=== PATIENT | female | born 1970 | race Caucasian/White ===

== ENCOUNTER 2016-10-19 10:00 | Outpatient (CLI) | payer OTHER, MEDICAID ==
[2015-04-02 17:06] VITALS: Ht 162.6 cm; Wt 141.1 kg
[~2016-10-19] VITALS: Ht 162.6 cm; Wt 141.1 kg
[~2016-10-19 10:00] MED LIST: AMLO2.5T2 PO; BENA40TA2 PO; DOCU-144 PO; FOLI-43 PO; FURO-149 PO; INSU100V9 SUBCUT; LEVO50TA8 PO; LINA290C PO; LYR50 PO; METO2.5T6 PO; OMEP40CA33 PO; PRO40 PO; REGL10 PO; SEVE800T10 PO; SIMV10TA2 PO; SIMV40TA2 PO; SODI650T PO
[2016-10-19 10:45] LABS: BILIRUBIN,URINE NEGATIVE (NEGATIVE); BLOOD, URINE 2+ (NEGATIVE); COLOR,URINE YELLOW (YELLOW); GLUCOSE,URINE NEGATIVE (NEGATIVE); KETONES,URINE NEGATIVE (NEGATIVE); LEUKOCYTE ESTERASE ,URINE TRACE (NEGATIVE); NITRITE, URINE NEGATIVE (NEGATIVE); PROTEIN URINE 3+ (NEGATIVE); UROBILINOGEN,URINE 0.2 (0.2-1.0)
[2016-10-19 10:47] LABS: BASOPHILS % (AUTO) 0.4 % (0.0-2.0); EOSINOPHILS # (AUTO) 0.2 K/uL (0.0-0.4); EOSINOPHILS % (AUTO) 2.7 % (0.0-4.0); LYMPHOCYTES # (AUTO) 2.2 K/uL (1.0-5.5); LYMPHOCYTES % (AUTO) 26.1 % (20.5-51.5); MEAN CORPUSCULAR HEMOGLOBIN 30 pg (27-31); MEAN CORPUSCULAR HGB CONC 33 % (32-36); MEAN CORPUSCULAR VOLUME 91 fL (79.0-98.0); MONOCYTES # (AUTO) 0.5 K/uL (0.0-1.0); MONOCYTES % (AUTO) 6.1 % (1.7-9.3); NEUTROPHILS # (AUTO) 5.7 K/uL (1.8-7.7); NEUTROPHILS % (AUTO) 64.7 % (40.0-70.0); PLATELET COUNT (AUTO) 359 K/uL (130-430); RED BLOOD CELL COUNT(AUTO) 4.07 MIL/uL (4.2-6.2); RED CELL DISTRIBUTION WIDTH 16.5 % (9.0-15.0); WHITE BLOOD COUNT (AUTO) 8.6 K/uL (4.8-10.8)
[2016-10-19 10:56] LABS: BACTERIA,URINE FEW /HPF (None Seen); CLARITY/URINE CLEAR (CLEAR); WBC,URINE 0-3 /HPF (0-3)
[2016-10-19 10:57] LABS: INR 0.9 (0.8-1.2); PROTHROMBIN TIME 9.6 SECS (9.5-12.5)
[2016-10-19 10:58] LABS: ALBUMIN 3.5 g/dL (3.4-4.8); CALCIUM 9.6 mg/dL (8.4-11.0); TOTAL BILIRUBIN 0.6 mg/dL (0.0-1.0); TOTAL PROTEIN, SERUM 8.6 g/dL (6.4-8.3)
[2016-10-19 11:04] LABS: POTASSIUM 5.9 mmol/L (3.5-5.1)
[2016-10-19 11:07] LABS: CREATININE 9.09 mg/dL (0.55-1.30)
[2016-10-20 05:59] VITALS: BP 132/70; PULSE 86; RESP 16; TEMP 97.4; O2SAT 98
== END 2016-10-19 18:00 | disposition home or self-care (01) ==
LOC: SLB 10:00 → SMU 10-20 05:08 → SDS 10-20 08:00 → SMU 10-20 08:00 → EDSTATUS 10-22 07:30
PROVIDERS: ATTEND Obstetrics & Gynecology
DX: N93.9 Abnormal uterine and vaginal bleeding, unspecified (principal); Z53.9 Procedure and treatment not carried out, unspecified reason; E03.9 Hypothyroidism, unspecified; I12.9 Hypertensive chronic kidney disease with stage 1 through stage 4 chronic kidney disease, or unspecified chronic kidney disease; E11.22 Type 2 diabetes mellitus with diabetic chronic kidney disease; N18.9 Chronic kidney disease, unspecified; E78.00 Pure hypercholesterolemia, unspecified; E66.01 Morbid (severe) obesity due to excess calories; Z79.4 Long term (current) use of insulin
CPT/HCPCS: 36415; 71020-TC; 80053; 81000-TC; 82962; 84132-TC; 84703; 85025; 85610-TC; 85730-TC; 86886; 86900; 86901; J7030

== ENCOUNTER 2017-02-09 14:44 | Emergency (ER) | payer OTHER, MEDICAID ==
[~2017-02-09] VITALS: Ht 162.6 cm; Wt 141.1 kg
[~2017-02-09 14:44] MED LIST changes: -BENA40TA2 PO; -FURO-149 PO; -LINA290C PO; -LYR50 PO; -METO2.5T6 PO; -OMEP40CA33 PO; -SIMV40TA2 PO; -SODI650T PO
[2017-02-09 14:56] VITALS: BP_SYST 127
[2017-02-09] MEDS ORDERED: DIPHENHYDRAMINE INJ 50 MG/ML VIAL IM ONE (16:15)
[2017-02-09] MEDS ORDERED: MORPHINE SULFATE 10 MG/ML VIAL IM ONE (16:15)
[2017-02-09] MEDS ORDERED: ACETAMINOPHEN/CODEINE 300 MG-30 MG TABLET PO ONE (16:30)
[2017-02-09 17:40] VITALS: BP_SYST 118
== END 2017-02-10 00:50 | disposition home or self-care (01) ==
LOC: SED 14:44
DX: S93.602A Unspecified sprain of left foot, initial encounter (principal); E11.610 Type 2 diabetes mellitus with diabetic neuropathic arthropathy; E11.22 Type 2 diabetes mellitus with diabetic chronic kidney disease; I12.0 Hypertensive chronic kidney disease with stage 5 chronic kidney disease or end stage renal disease; N18.6 End stage renal disease; Z99.2 Dependence on renal dialysis; Z79.4 Long term (current) use of insulin; Z89.422 Acquired absence of other left toe(s); W19.XXXA Unspecified fall, initial encounter; Y93.89 Activity, other specified; Y92.89 Other specified places as the place of occurrence of the external cause; Y99.8 Other external cause status
CPT/HCPCS: 73630; 99283; J1200; J2270

== ENCOUNTER 2017-08-08 12:30 | Outpatient (CLI) | payer OTHER, MEDICAID | END 2017-08-08 20:00 | disposition home or self-care (01) | LOC: SRD 12:30 | PROVIDERS: ATTEND Family Medicine | DX: Z01.818 Encounter for other preprocedural examination (principal); R05 Cough; N92.0 Excessive and frequent menstruation with regular cycle | CPT/HCPCS: 71046-TC ==

== ENCOUNTER 2017-08-24 07:30 | Day surgery (SDC) | payer OTHER, MEDICAID ==
[2017-08-23 11:35] LABS: BASOPHILS % (AUTO) 0.6 % (0.0-2.0); EOSINOPHILS # (AUTO) 0.3 K/uL (0.0-0.4); EOSINOPHILS % (AUTO) 4.1 % (0.0-4.0); HEMATOCRIT 39.8 % (36-48); HEMOGLOBIN 12.7 g/dL (12.0-16.0); LYMPHOCYTES # (AUTO) 2.4 K/uL (1.0-5.5); LYMPHOCYTES % (AUTO) 30.9 % (20.5-51.5); MEAN CORPUSCULAR HEMOGLOBIN 26 pg (27-31); MEAN CORPUSCULAR HGB CONC 32 % (32-36); MEAN CORPUSCULAR VOLUME 82 fL (79.0-98.0); MONOCYTES # (AUTO) 0.5 K/uL (0.0-1.0); MONOCYTES % (AUTO) 6.6 % (1.7-9.3); NEUTROPHILS # (AUTO) 4.7 K/uL (1.8-7.7); NEUTROPHILS % (AUTO) 57.8 % (40.0-70.0); PLATELET COUNT (AUTO) 338 K/uL (130-430); RED BLOOD CELL COUNT(AUTO) 4.85 MIL/uL (4.2-6.2); RED CELL DISTRIBUTION WIDTH 16.2 % (9.0-15.0); WHITE BLOOD COUNT (AUTO) 7.9 K/uL (4.8-10.8)
[2017-08-23 11:51] LABS: ALBUMIN 3.3 g/dL (3.4-4.8); CALCIUM 10.1 mg/dL (8.4-11.0); POTASSIUM 3.9 mmol/L (3.5-5.1); TOTAL BILIRUBIN 0.6 mg/dL (0.0-1.0)
[2017-08-23 12:03] LABS: CREATININE 7.53 mg/dL (0.55-1.30)
[~2017-08-24] VITALS: Ht 162.6 cm; Wt 117.9 kg
[2017-08-24 08:24] LABS: POTASSIUM 3.3 mmol/L (3.5-5.1)
[2017-08-24 08:30] LABS: INR 0.9 (0.8-1.2); PROTHROMBIN TIME 9.3 SECS (9.5-12.5)
[2017-08-24] MEDS ORDERED: MIDAZOLAM HCL 5 MG/5 ML VIAL IVP ONE (11:00)
[2017-08-24] MEDS ORDERED: BUPIVACAINE /PF 0.5% 30 ML VIAL INJ ONE (11:00)
[2017-08-24] MEDS ORDERED: SODIUM BICARBONATE 4% (NEUT) 5 ML VIAL INJ ONE (11:00)
[2017-08-24] MEDS ORDERED: NS 1000 ML BAG IV ONE (11:00)
[2017-08-24] MEDS ORDERED: LIDOCAINE/EPI 2% 1:100000 20 ML VIAL INJ ONE (11:00)
[2017-08-24] MEDS ORDERED: NS IRRIG SOLN 1000 ML IR ONE (11:00)
[2017-08-24] MEDS ORDERED: BUPIVACAINE /PF 0.75% 10 ML VIAL INJ ONE (11:00)
[2017-08-24] MEDS ORDERED: LR 1,000 ML IV SCH (12:07)
[2017-08-24] MEDS ORDERED: MORPHINE 4 MG/ML INJ. SYRINGE IVP PRN ×3 (12:15)
[2017-08-24] MEDS ORDERED: MEPERIDINE HCL/PF 25 MG/ML DISP.SYRIN IVP PRN (12:15)
[2017-08-24] MEDS ORDERED: PROMETHAZINE HCL 25 MG/ML AMP IM PRN (12:30)
[2017-08-24] MEDS ORDERED: ONDANSETRON HCL 4 MG/2 ML VIAL IVP PRN (12:30)
[2017-08-24] MEDS ORDERED: OXYCODONE/ACETAMINOPHEN 5-325 TABLET PO PRN (12:30)
[2017-08-24] MEDS ORDERED: ACETAMINOPHEN 325 MG TABLET ONE (13:34)
[2017-08-24] MEDS ORDERED: ACETAMINOPHEN 325 MG TABLET PO ONE (13:45)
[2017-08-24 16:55] VITALS: BP_SYST 149
== END 2017-08-24 16:45 | disposition home or self-care (01) ==
LOC: SDS 07:30 → SMU 07:30 → SDS 16:45
PROVIDERS: ATTEND Obstetrics & Gynecology
DX: N84.0 Polyp of corpus uteri (principal); D25.0 Submucous leiomyoma of uterus; I12.9 Hypertensive chronic kidney disease with stage 1 through stage 4 chronic kidney disease, or unspecified chronic kidney disease; E11.22 Type 2 diabetes mellitus with diabetic chronic kidney disease; N18.9 Chronic kidney disease, unspecified; E03.9 Hypothyroidism, unspecified; E78.00 Pure hypercholesterolemia, unspecified; E66.01 Morbid (severe) obesity due to excess calories; Z79.899 Other long term (current) drug therapy; Z88.0 Allergy status to penicillin
CPT/HCPCS: 36415 ×2; 58563; 80053; 82947; 84132; 84703; 85025; 85610; 85730; 86886; 86900; 86901; 88305; C1819; J2250; J3490 ×2; J7030

== ENCOUNTER 2018-04-28 10:35 | Inpatient (IN) | payer OTHER, MEDICAID ==
[~2018-04-28] VITALS: Ht 162.6 cm; Wt 90.7 kg
[~2018-04-28 10:35] MED LIST changes: +REN800 PO; -SEVE800T10 PO
[2018-04-28 11:07] VITALS: BP_SYST 128
[2018-04-28 12:53] LABS: BASOPHILS % (AUTO) 0.8 % (0.0-2.0); LYMPHOCYTES % (AUTO) 36.5 % (20.5-51.5)
[2018-04-28 12:55] LABS: BASOPHILS # (AUTO) 0.1 K/uL (0.0-0.2); EOSINOPHILS # (AUTO) 0.2 K/uL (0.0-0.4); EOSINOPHILS % (AUTO) 3.3 % (0.0-4.0); HEMOGLOBIN 10.8 g/dL (12.0-16.0); LYMPHOCYTES # (AUTO) 2.7 K/uL (1.0-5.5); MEAN CORPUSCULAR HEMOGLOBIN 29 pg (27-31); MEAN CORPUSCULAR HGB CONC 33 % (32-36); MEAN CORPUSCULAR VOLUME 88 fL (79.0-98.0); MONOCYTES # (AUTO) 0.5 K/uL (0.0-1.0); MONOCYTES % (AUTO) 6.6 % (1.7-9.3); NEUTROPHILS # (AUTO) 3.9 K/uL (1.8-7.7); NEUTROPHILS % (AUTO) 52.8 % (40.0-70.0); PLATELET COUNT (AUTO) 307 K/uL (130-430); RED BLOOD CELL COUNT(AUTO) 3.74 MIL/uL (4.2-6.2); RED CELL DISTRIBUTION WIDTH 13.8 % (9.0-15.0); WHITE BLOOD COUNT (AUTO) 7.4 K/uL (4.8-10.8)
[2018-04-28 12:59] LABS: CALCIUM 9.7 mg/dL (8.4-11.0); POTASSIUM 4.4 mmol/L (3.5-5.1)
[2018-04-28 13:03] LABS: INR 0.9 (0.8-1.2); PROTHROMBIN TIME 9.3 SECS (9.5-12.5)
[2018-04-28 13:05] LABS: ALBUMIN 3.5 g/dL (3.4-4.8); TOTAL BILIRUBIN 0.6 mg/dL (0.0-1.0)
[2018-04-28 13:08] LABS: CREATININE 14.22 mg/dL (0.55-1.30)
[2018-04-28] MEDS ORDERED: SUCR1TAB78 PO (15:49)
[2018-04-28] MEDS ORDERED: SEVE800T8 PO (15:49)
[2018-04-28] MEDS ORDERED: ACET-2634 PO (15:49)
[2018-04-28] MEDS ORDERED: NEPH PO (15:49)
[2018-04-28] MEDS ORDERED: LORA10TA7 PO (15:49)
[2018-04-28] MEDS ORDERED: LINA72CA PO (15:49)
[2018-04-28 16:20] VITALS: BP_SYST 118
[2018-04-28 19:15] VITALS: BP_SYST 134
[2018-04-28] MEDS: SEVELAMER HCL 800 MG TABLET PO SCH (21:48)
[2018-04-28] MEDS: ACETAMINOPHEN 500 MG TABLET PO SCH (22:00)
[2018-04-29] MEDS: ACETAMINOPHEN 500 MG TABLET PO SCH (05:56)
[2018-04-29 08:00] VITALS: BP_SYST 101
[2018-04-29] MEDS: SEVELAMER HCL 800 MG TABLET PO SCH ×2 (08:55→13:15)
[2018-04-29] MEDS ORDERED: LORATADINE 10 MG TABLET PO SCH (09:00)
[2018-04-29] MEDS ORDERED: NEPHROVITE, (FOLIC ACID/VITAMIN B COMP W-C 1 TAB) PO SCH ×2 (09:00)
[2018-04-29] MEDS ORDERED: SUCRALFATE 1 GM TABLET PO SCH (09:00)
[2018-04-29 11:55] VITALS: BP_SYST 117
[2018-04-29 15:57] VITALS: BP_SYST 134
[2018-04-29 16:17] VITALS: BP_SYST 120
== END 2018-04-29 16:37 | disposition home or self-care (01) | DRG 91 ==
LOC: SED 10:35 → SMU 15:19
PROVIDERS: ADMIT Family Medicine; ATTEND Family Medicine
PROC: 5A1D70Z Performance of Urinary Filtration, Intermittent, Less than 6 Hours Per Day (ICD-10-PCS; principal; 2018-04-28)
DX: G92 Toxic encephalopathy (principal); N18.6 End stage renal disease; I12.0 Hypertensive chronic kidney disease with stage 5 chronic kidney disease or end stage renal disease; E66.9 Obesity, unspecified; D64.9 Anemia, unspecified; E11.22 Type 2 diabetes mellitus with diabetic chronic kidney disease; E11.51 Type 2 diabetes mellitus with diabetic peripheral angiopathy without gangrene; E11.610 Type 2 diabetes mellitus with diabetic neuropathic arthropathy; G47.30 Sleep apnea, unspecified; J45.909 Unspecified asthma, uncomplicated; Z99.2 Dependence on renal dialysis; Z88.1 Allergy status to other antibiotic agents; Z88.8 Allergy status to other drugs, medicaments and biological substances; Z79.899 Other long term (current) drug therapy; Z68.34 Body mass index [BMI] 34.0-34.9, adult; Z89.421 Acquired absence of other right toe(s)
CPT/HCPCS: 36415; 71045; 80053; 83880; 84484; 84703; 85025; 85610-TC; 85730-TC; 87081; 90935; 93005; 99285; J7030

== ENCOUNTER 2018-11-26 01:36 | Emergency (ER) | payer OTHER, MEDICAID ==
[~2018-11-26] VITALS: Ht 162.6 cm; Wt 81.6 kg
[~2018-11-26 01:36] MED LIST changes: +ACET-2634 PO; -AMLO2.5T2 PO; -DOCU-144 PO; -FOLI-43 PO; -INSU100V9 SUBCUT; -LEVO50TA8 PO; +LINA72CA PO; +LORA10TA7 PO; +NEPH PO; -PRO40 PO; -REGL10 PO; -REN800 PO; +SEVE800T8 PO; -SIMV10TA2 PO; +SUCR1TAB78 PO
[2018-11-26 01:43] VITALS: BP_SYST 151
--- NOTE | 2018-11-26 01:43 | NUR ---
Patient to ER bed 4 for evaluation. Side rails up. Report given to Jimena.
--- NOTE | 2018-11-26 02:00 | NUR ---
ER at bedside examining patient.
--- NOTE | 2018-11-26 02:05 | NUR ---
PT came to the ED for severe pain at side of lizzy quesada drawin on her L lateral ABD placed on 11/16 when she had a tummy tuck. Reports that when she sat down last night she had a sharp, severe pain around her tubing palaced on her L lateral ABD. Reports her plastic surgeon Dr. Harris referred her to ED. Denies n/v/d or fever. No other complaints/injuries noted. Will cont. to monitor.
[2018-11-26] MEDS ORDERED: ACETAMINOPHEN 500 MG TABLET PO ONE (02:30)
--- NOTE | 2018-11-26 03:00 | NUR ---
Pt resting comfortably in bed, no signs of acute distress. Will cont. to monitor.
[2018-11-26 03:47] LABS: BASOPHILS # (AUTO) 0.1 K/uL (0.0-0.2); BASOPHILS % (AUTO) 1.9 % (0.0-2.0); EOSINOPHILS # (AUTO) 0.9 K/uL (0.0-0.4); EOSINOPHILS % (AUTO) 13.7 % (0.0-4.0); HEMATOCRIT 26.3 % (36-48); HEMOGLOBIN 8.3 g/dL (12.0-16.0); LYMPHOCYTES # (AUTO) 1.5 K/uL (1.0-5.5); LYMPHOCYTES % (AUTO) 21.8 % (20.5-51.5); MEAN CORPUSCULAR HEMOGLOBIN 26 pg (27-31); MEAN CORPUSCULAR HGB CONC 32 % (32-36); MEAN CORPUSCULAR VOLUME 81 fL (79.0-98.0); MONOCYTES # (AUTO) 0.6 K/uL (0.0-1.0); MONOCYTES % (AUTO) 9.2 % (1.7-9.3); NEUTROPHILS # (AUTO) 3.6 K/uL (1.8-7.7); NEUTROPHILS % (AUTO) 53.4 % (40.0-70.0); PLATELET COUNT (AUTO) 335 K/uL (130-430); RED BLOOD CELL COUNT(AUTO) 3.25 MIL/uL (4.2-6.2); RED CELL DISTRIBUTION WIDTH 15.6 % (9.0-15.0); WHITE BLOOD COUNT (AUTO) 6.7 K/uL (4.8-10.8)
--- NOTE | 2018-11-26 04:00 | NUR ---
Pt resting comfortably in bed, no signs of acute distress. Will cont. to monitor.
[2018-11-26 04:03] LABS: CALCIUM 9.4 mg/dL (8.4-11.0); CREATININE 7.07 mg/dL (0.55-1.30); POTASSIUM 4.1 mmol/L (3.5-5.1)
[2018-11-26 04:09] LABS: ALBUMIN 2.8 g/dL (3.4-4.8); TOTAL BILIRUBIN 0.4 mg/dL (0.0-1.0)
--- NOTE | 2018-11-26 05:00 | NUR ---
Pt resting comfortably in bed, no signs of acute distress. Will cont. to monitor.
--- NOTE | 2018-11-26 06:11 | NUR ---
Dr. Wallace at bedside speaking to pt.
--- NOTE | 2018-11-26 06:14 | NUR ---
Dr. Wallace gave the pt the decision if she would like to stay or go home. Pt states, "I would like to go home."
[2018-11-26 06:30] VITALS: BP_SYST 151
--- NOTE | 2018-11-26 06:30 | NUR ---
Patient given written and verbal discharge instructions and verbalizes understanding. ER MD Dr. Wallace discussed with patient the results and treatment provided. Patient in stable condition. ID arm band removed. Patient educated on pain management and to follow up with PMD. Pain Scale 2/10, tolerable for pt. Pt able to ambulate with steady gait. Opportunity for questions provided and answered. Medication side effect fact sheet provided.
== END 2018-11-26 06:30 | disposition home or self-care (01) ==
LOC: SED 01:36
DX: G89.18 Other acute postprocedural pain (principal); R10.9 Unspecified abdominal pain; I12.9 Hypertensive chronic kidney disease with stage 1 through stage 4 chronic kidney disease, or unspecified chronic kidney disease; E11.22 Type 2 diabetes mellitus with diabetic chronic kidney disease; N18.9 Chronic kidney disease, unspecified; Z99.2 Dependence on renal dialysis; Z88.1 Allergy status to other antibiotic agents; Z79.899 Other long term (current) drug therapy
CPT/HCPCS: 36415; 80053; 85025; 99283

== ENCOUNTER 2019-10-26 15:01 | Inpatient (IN) | payer OTHER, MEDICAID, SELFPAY ==
[~2019-10-26] VITALS: Ht 162.6 cm; Wt 75.7 kg
[2019-10-26] MEDS ORDERED: ROSU10TA29 PO (15:23)
[2019-10-26] MEDS ORDERED: PANT40TA4 PO (15:23)
[2019-10-26] MEDS ORDERED: LEVO50CA2 PO (15:23)
[2019-10-26] MEDS ORDERED: HYDR-4037 PO (15:23)
[2019-10-26] MEDS ORDERED: CHOL100034 PO (15:23)
[2019-10-26] MEDS ORDERED: AMLO10TA88 PO (15:23)
[2019-10-26] MEDS ORDERED: [UNRECOGNIZED DRUG - OTHER] PO (15:23)
[2019-10-26] MEDS ORDERED: LYR50 PO (15:23)
[2019-10-26] MEDS ORDERED: SENN8.6T19 PO (15:23)
[2019-10-26 15:25] VITALS: BP_SYST 155
[2019-10-26] MEDS ORDERED: HYDR-4100 PO (15:25)
[2019-10-26] MEDS ORDERED: IBUP-1017 PO (15:25)
[2019-10-26 16:56] LABS: BASOPHILS % (AUTO) 0.7 % (0.0-2.0); HEMATOCRIT 28.4 % (36-48); HEMOGLOBIN 9.6 g/dL (12.0-16.0); LYMPHOCYTES % (AUTO) 25.7 % (20.5-51.5); MEAN CORPUSCULAR HEMOGLOBIN 30 pg (27-31); MEAN CORPUSCULAR HGB CONC 34 % (32-36); MEAN CORPUSCULAR VOLUME 90 fL (79.0-98.0); MONOCYTES # (AUTO) 0.3 K/uL (0.0-1.0); MONOCYTES % (AUTO) 7.6 % (1.7-9.3); NEUTROPHILS # (AUTO) 2.6 K/uL (1.8-7.7); PLATELET COUNT (AUTO) 151 K/uL (130-430); RED BLOOD CELL COUNT(AUTO) 3.15 MIL/uL (4.2-6.2); RED CELL DISTRIBUTION WIDTH 14.9 % (9.0-15.0); WHITE BLOOD COUNT (AUTO) 3.9 K/uL (4.8-10.8)
[2019-10-26 16:58] LABS: CALCIUM 8.6 mg/dL (8.4-11.0); POTASSIUM 4.5 mmol/L (3.5-5.1)
[2019-10-26 17:01] LABS: PROTHROMBIN TIME 10.1 SECS (9.5-12.5)
[2019-10-26 17:03] LABS: ALBUMIN 3.4 g/dL (3.4-4.8); C-REACTIVE PROTEIN QUANT 11.3 mg/dL (0-0.5); CREATININE 9.76 mg/dL (0.55-1.30); TOTAL BILIRUBIN 0.5 mg/dL (0.0-1.0)
[2019-10-26] MEDS ORDERED: cefTRIAXone 1 GM in D5W 50 ML IV ONE (17:15)
[2019-10-26] MEDS ORDERED: AZITHROMYCIN 500 MG in NS 250 ML IV ONE (17:15)
[2019-10-26] MEDS ORDERED: AZITHROMYCIN 500 MG/VIAL (ZITHROMAX) IV ONE (17:49)
[2019-10-26] MEDS ORDERED: cefTRIAXone 1 GM VIAL ONE (17:50)
[2019-10-26] MEDS ORDERED: IBUPROFEN 800 MG TABLET PO ONE (18:00)
[2019-10-26 19:00] VITALS: BP_SYST 128
[2019-10-26 20:00] VITALS: BP_SYST 128
[2019-10-26] MEDS ORDERED: IBUPROFEN 800 MG TABLET PO SCH (23:00)
[2019-10-26] MEDS ORDERED: HYDROcodone/ACETAMIN 10-325 MG TAB PO PRN (23:15)
[2019-10-27] VITALS: BP_SYST 127
[2019-10-27] MEDS: guaiFENesin 200 MG/CODEINE 20 MG/ 10 ML UDC PO PRN (00:51)
[2019-10-27 06:00] VITALS: BP_SYST 150
[2019-10-27 06:38] LABS: BASOPHILS % (AUTO) 0.4 % (0.0-2.0); EOSINOPHILS % (AUTO) 0.1 % (0.0-4.0); HEMOGLOBIN 9.2 g/dL (12.0-16.0); LYMPHOCYTES # (AUTO) 0.5 K/uL (1.0-5.5); LYMPHOCYTES % (AUTO) 13.6 % (20.5-51.5); MEAN CORPUSCULAR HEMOGLOBIN 30 pg (27-31); MEAN CORPUSCULAR HGB CONC 34 % (32-36); MEAN CORPUSCULAR VOLUME 89 fL (79.0-98.0); MONOCYTES # (AUTO) 0.2 K/uL (0.0-1.0); MONOCYTES % (AUTO) 4.6 % (1.7-9.3); NEUTROPHILS # (AUTO) 2.9 K/uL (1.8-7.7); NEUTROPHILS % (AUTO) 81.3 % (40.0-70.0); PLATELET COUNT (AUTO) 126 K/uL (130-430); RED BLOOD CELL COUNT(AUTO) 3.02 MIL/uL (4.2-6.2); WHITE BLOOD COUNT (AUTO) 3.6 K/uL (4.8-10.8)
[2019-10-27 06:43] LABS: CALCIUM 8.4 mg/dL (8.4-11.0); POTASSIUM 5.2 mmol/L (3.5-5.1)
[2019-10-27] MEDS: ACETAMINOPHEN 500 MG TABLET PO SCH ×3 (06:45→23:20)
[2019-10-27 06:48] LABS: CREATININE 10.84 mg/dL (0.55-1.30)
[2019-10-27 08:00] VITALS: BP_SYST 131
[2019-10-27] MEDS: SUCRALFATE 1 GM TABLET PO SCH (08:53)
[2019-10-27] MEDS: PANTOPRAZOLE SODIUM 40 MG TAB PO SCH (08:53)
[2019-10-27] MEDS: SEVELAMER CARBONATE 800 MG TABLET PO SCH ×3 (08:53→17:16)
[2019-10-27] MEDS: CHOLECALCIFEROL (VITAMIN D3) 2,000 UNIT TABLET PO SCH (08:53)
[2019-10-27] MEDS: LORATADINE 10 MG TABLET PO SCH (08:53)
[2019-10-27] MEDS: NEPHROVITE, (FOLIC ACID/VITAMIN B COMP W-C 1 TAB) PO SCH (08:53)
[2019-10-27] MEDS: ATORVASTATIN 20 MG TABLET PO SCH (08:53)
[2019-10-27] MEDS: LEVOTHYROXINE SODIUM 0.05 MG TABLET PO SCH (08:54)
[2019-10-27] MEDS: SENNOSIDES 8.6 MG TABLET PO SCH (08:54)
[2019-10-27] MEDS: PREGABALIN 25 MG CAPSULE (LYRICA) PO SCH (08:54)
[2019-10-27] MEDS ORDERED: [UNRECOGNIZED DRUG - OTHER] PO SCH (09:00)
[2019-10-27] MEDS: hydrALAZINE HCL 10 MG TABLET PO SCH ×2 (09:00→21:00)
[2019-10-27] MEDS: amLODIPine BESYLATE 10 MG TABLET PO SCH (09:00)
[2019-10-27 12:00] VITALS: BP_SYST 127
[2019-10-27 16:00] VITALS: BP_SYST 122
[2019-10-27] MEDS ORDERED: ASCORBIC ACID 500 MG TABLET PO ONE (16:30)
[2019-10-27] MEDS ORDERED: HEPARIN SODIUM,PORCINE 5000 UNITS/ML VIAL MC ONE (17:30)
[2019-10-27] MEDS: EPOETIN ALFA 3,000 UNITS/ML VIAL SUBCUT SCH (18:45)
[2019-10-27] MEDS: cefTRIAXone 1 GM in D5W 50 ML IV SCH (19:06)
[2019-10-27] MEDS: AZITHROMYCIN 500 MG in NS 250 ML IV SCH (19:07)
[2019-10-27 20:00] VITALS: BP_SYST 119; BP_SYST 147
[2019-10-27] MEDS: ENOXAPARIN SODIUM 30 MG/0.3 ML SYRINGE SUBCUT SCH (22:18)
[2019-10-28] VITALS: BP_SYST 110
[2019-10-28] MEDS: ACETAMINOPHEN 500 MG TABLET PO SCH ×3 (06:00→22:40)
[2019-10-28 07:42] LABS: BASOPHILS % (AUTO) 0.4 % (0.0-2.0); EOSINOPHILS % (AUTO) 0.7 % (0.0-4.0); HEMATOCRIT 26.8 % (36-48); LYMPHOCYTES # (AUTO) 0.9 K/uL (1.0-5.5); LYMPHOCYTES % (AUTO) 18.6 % (20.5-51.5); MEAN CORPUSCULAR HEMOGLOBIN 30 pg (27-31); MEAN CORPUSCULAR HGB CONC 34 % (32-36); MEAN CORPUSCULAR VOLUME 90 fL (79.0-98.0); MONOCYTES # (AUTO) 0.1 K/uL (0.0-1.0); MONOCYTES % (AUTO) 2.6 % (1.7-9.3); NEUTROPHILS # (AUTO) 3.6 K/uL (1.8-7.7); NEUTROPHILS % (AUTO) 77.7 % (40.0-70.0); PLATELET COUNT (AUTO) 147 K/uL (130-430); RED BLOOD CELL COUNT(AUTO) 2.98 MIL/uL (4.2-6.2); WHITE BLOOD COUNT (AUTO) 4.6 K/uL (4.8-10.8)
[2019-10-28 08:00] VITALS: BP_SYST 118
[2019-10-28 08:03] LABS: CALCIUM 8.6 mg/dL (8.4-11.0)
[2019-10-28] MEDS: SEVELAMER CARBONATE 800 MG TABLET PO SCH ×3 (08:12→18:16)
[2019-10-28 08:24] LABS: CREATININE 8.09 mg/dL (0.55-1.30)
[2019-10-28 08:40] LABS: C-REACTIVE PROTEIN QUANT 29.7 mg/dL (0-0.5)
[2019-10-28] MEDS: PREGABALIN 25 MG CAPSULE (LYRICA) PO SCH (09:00)
[2019-10-28] MEDS: SUCRALFATE 1 GM TABLET PO SCH (09:44)
[2019-10-28] MEDS: LORATADINE 10 MG TABLET PO SCH (09:44)
[2019-10-28] MEDS: ATORVASTATIN 20 MG TABLET PO SCH (09:44)
[2019-10-28] MEDS: hydrALAZINE HCL 10 MG TABLET PO SCH ×2 (09:44→22:40)
[2019-10-28] MEDS: NEPHROVITE, (FOLIC ACID/VITAMIN B COMP W-C 1 TAB) PO SCH (09:45)
[2019-10-28] MEDS: ASCORBIC ACID 500 MG TABLET PO SCH (09:45)
[2019-10-28] MEDS: amLODIPine BESYLATE 10 MG TABLET PO SCH (09:45)
[2019-10-28] MEDS: PANTOPRAZOLE SODIUM 40 MG TAB PO SCH (09:45)
[2019-10-28] MEDS: SENNOSIDES 8.6 MG TABLET PO SCH (09:45)
[2019-10-28] MEDS: LEVOTHYROXINE SODIUM 0.05 MG TABLET PO SCH (09:45)
[2019-10-28] MEDS: CHOLECALCIFEROL (VITAMIN D3) 2,000 UNIT TABLET PO SCH (09:45)
[2019-10-28 12:00] VITALS: BP_SYST 126
[2019-10-28 16:00] VITALS: BP_SYST 134
[2019-10-28] MEDS: AZITHROMYCIN 500 MG in NS 250 ML IV SCH (18:15)
[2019-10-28] MEDS: cefTRIAXone 1 GM in D5W 50 ML IV SCH (18:15)
[2019-10-28] MEDS: EPOETIN ALFA 3,000 UNITS/ML VIAL SUBCUT SCH (18:16)
[2019-10-28] MEDS: guaiFENesin 200 MG/CODEINE 20 MG/ 10 ML UDC PO PRN ×2 (18:30→20:00)
[2019-10-28 20:45] VITALS: BP_SYST 114
[2019-10-28] MEDS: ENOXAPARIN SODIUM 30 MG/0.3 ML SYRINGE SUBCUT SCH (22:40)
[2019-10-29 00:30] VITALS: BP_SYST 127
[2019-10-29] MEDS: ACETAMINOPHEN 500 MG TABLET PO SCH ×3 (05:55→21:19)
[2019-10-29 08:15] VITALS: BP_SYST 136
[2019-10-29 08:33] LABS: BASOPHILS % (AUTO) 0.3 % (0.0-2.0); HEMATOCRIT 24.9 % (36-48); HEMOGLOBIN 8.4 g/dL (12.0-16.0); LYMPHOCYTES # (AUTO) 0.7 K/uL (1.0-5.5); LYMPHOCYTES % (AUTO) 18.8 % (20.5-51.5); MEAN CORPUSCULAR HEMOGLOBIN 30 pg (27-31); MEAN CORPUSCULAR HGB CONC 34 % (32-36); MEAN CORPUSCULAR VOLUME 89 fL (79.0-98.0); MONOCYTES # (AUTO) 0.1 K/uL (0.0-1.0); MONOCYTES % (AUTO) 3.4 % (1.7-9.3); NEUTROPHILS # (AUTO) 2.9 K/uL (1.8-7.7); NEUTROPHILS % (AUTO) 76.5 % (40.0-70.0); PLATELET COUNT (AUTO) 143 K/uL (130-430); RED CELL DISTRIBUTION WIDTH 15.2 % (9.0-15.0); WHITE BLOOD COUNT (AUTO) 3.8 K/uL (4.8-10.8)
[2019-10-29 08:45] LABS: CALCIUM 8.4 mg/dL (8.4-11.0); PHOSPHORUS 5.1 mg/dL (2.7-4.5); POTASSIUM 4.3 mmol/L (3.5-5.1)
[2019-10-29 08:49] LABS: CREATININE 10.1 mg/dL (0.55-1.30)
[2019-10-29] MEDS: ATORVASTATIN 20 MG TABLET PO SCH (09:00)
[2019-10-29] MEDS: SUCRALFATE 1 GM TABLET PO SCH (09:20)
[2019-10-29] MEDS: hydrALAZINE HCL 10 MG TABLET PO SCH ×2 (09:20→21:17)
[2019-10-29] MEDS: SEVELAMER CARBONATE 800 MG TABLET PO SCH ×3 (09:20→18:23)
[2019-10-29] MEDS: CHOLECALCIFEROL (VITAMIN D3) 2,000 UNIT TABLET PO SCH (09:21)
[2019-10-29] MEDS: NEPHROVITE, (FOLIC ACID/VITAMIN B COMP W-C 1 TAB) PO SCH (09:21)
[2019-10-29] MEDS: SENNOSIDES 8.6 MG TABLET PO SCH (09:21)
[2019-10-29] MEDS: LORATADINE 10 MG TABLET PO SCH (09:21)
[2019-10-29] MEDS: ASCORBIC ACID 500 MG TABLET PO SCH (09:21)
[2019-10-29] MEDS: PREGABALIN 25 MG CAPSULE (LYRICA) PO SCH (09:21)
[2019-10-29] MEDS: PANTOPRAZOLE SODIUM 40 MG TAB PO SCH (09:21)
[2019-10-29] MEDS: amLODIPine BESYLATE 10 MG TABLET PO SCH (09:21)
[2019-10-29] MEDS: LEVOTHYROXINE SODIUM 0.05 MG TABLET PO SCH (09:21)
[2019-10-29] MEDS ORDERED: PHO667 PO (09:34)
[2019-10-29] MEDS ORDERED: IVERMECTIN 3 MG TABLET PO ONE (11:45)
[2019-10-29] MEDS: guaiFENesin 200 MG/CODEINE 20 MG/ 10 ML UDC PO PRN (11:50)
[2019-10-29 13:16] VITALS: BP_SYST 156
[2019-10-29] MEDS ORDERED: HEPARIN SODIUM,PORCINE 5000 UNITS/ML VIAL MC ONE (14:45)
[2019-10-29] MEDS ORDERED: HEPARIN SODIUM,PORCINE 5000 UNITS/ML VIAL ONE (14:54)
[2019-10-29 16:00] VITALS: BP_SYST 157
[2019-10-29] MEDS: cefTRIAXone 1 GM in D5W 50 ML IV SCH (17:29)
[2019-10-29] MEDS: AZITHROMYCIN 500 MG in NS 250 ML IV SCH (18:23)
[2019-10-29 20:00] VITALS: BP_SYST 127
[2019-10-29] MEDS: ENOXAPARIN SODIUM 30 MG/0.3 ML SYRINGE SUBCUT SCH (21:18)
[2019-10-30] VITALS: BP_SYST 108
[2019-10-30] MEDS: ACETAMINOPHEN 500 MG TABLET PO SCH ×3 (05:58→22:30)
[2019-10-30 07:12] LABS: BASOPHILS % (AUTO) 0.3 % (0.0-2.0); EOSINOPHILS % (AUTO) 0.5 % (0.0-4.0); HEMOGLOBIN 8.1 g/dL (12.0-16.0); LYMPHOCYTES # (AUTO) 0.6 K/uL (1.0-5.5); LYMPHOCYTES % (AUTO) 13.8 % (20.5-51.5); MEAN CORPUSCULAR HEMOGLOBIN 30 pg (27-31); MEAN CORPUSCULAR HGB CONC 34 % (32-36); MEAN CORPUSCULAR VOLUME 89 fL (79.0-98.0); MONOCYTES # (AUTO) 0.2 K/uL (0.0-1.0); MONOCYTES % (AUTO) 3.9 % (1.7-9.3); NEUTROPHILS # (AUTO) 3.3 K/uL (1.8-7.7); NEUTROPHILS % (AUTO) 81.5 % (40.0-70.0); PLATELET COUNT (AUTO) 178 K/uL (130-430); RED CELL DISTRIBUTION WIDTH 14.6 % (9.0-15.0); WHITE BLOOD COUNT (AUTO) 4.1 K/uL (4.8-10.8)
[2019-10-30 07:34] LABS: CALCIUM 8.2 mg/dL (8.4-11.0); POTASSIUM 3.6 mmol/L (3.5-5.1)
[2019-10-30 08:30] LABS: CREATININE 7.98 mg/dL (0.55-1.30)
[2019-10-30] MEDS: CHOLECALCIFEROL (VITAMIN D3) 2,000 UNIT TABLET PO SCH (08:51)
[2019-10-30] MEDS: SEVELAMER CARBONATE 800 MG TABLET PO SCH ×4 (08:52→18:12)
[2019-10-30] MEDS: LORATADINE 10 MG TABLET PO SCH (08:52)
[2019-10-30] MEDS: SUCRALFATE 1 GM TABLET PO SCH (08:52)
[2019-10-30] MEDS: NEPHROVITE, (FOLIC ACID/VITAMIN B COMP W-C 1 TAB) PO SCH (08:52)
[2019-10-30] MEDS: LEVOTHYROXINE SODIUM 0.05 MG TABLET PO SCH (08:53)
[2019-10-30] MEDS: SENNOSIDES 8.6 MG TABLET PO SCH (08:53)
[2019-10-30] MEDS: PANTOPRAZOLE SODIUM 40 MG TAB PO SCH (08:53)
[2019-10-30] MEDS: ATORVASTATIN 20 MG TABLET PO SCH (08:54)
[2019-10-30] MEDS: ASCORBIC ACID 500 MG TABLET PO SCH (08:54)
[2019-10-30] MEDS: PREGABALIN 25 MG CAPSULE (LYRICA) PO SCH (09:00)
[2019-10-30] MEDS: hydrALAZINE HCL 10 MG TABLET PO SCH ×2 (09:00→22:29)
[2019-10-30 09:05] LABS: C-REACTIVE PROTEIN QUANT 25.7 mg/dL (0-0.5)
[2019-10-30 09:10] VITALS: BP_SYST 143
[2019-10-30] MEDS: amLODIPine BESYLATE 10 MG TABLET PO SCH (09:35)
[2019-10-30 12:30] VITALS: BP_SYST 130
[2019-10-30 16:00] VITALS: BP_SYST 134
[2019-10-30] MEDS: AZITHROMYCIN 500 MG in NS 250 ML IV SCH (18:11)
[2019-10-30] MEDS: cefTRIAXone 1 GM in D5W 50 ML IV SCH (18:11)
[2019-10-30] MEDS: EPOETIN ALFA 3,000 UNITS/ML VIAL SUBCUT SCH (18:11)
[2019-10-30] MEDS ORDERED: MILK OF MAGNESIA 30 ML UDC PO PRN (19:45)
[2019-10-30 20:00] VITALS: BP_SYST 138
[2019-10-30] MEDS: LUBIPROSTONE 24 MCG CAPSULE PO SCH (22:29)
[2019-10-30] MEDS: ENOXAPARIN SODIUM 30 MG/0.3 ML SYRINGE SUBCUT SCH (22:29)
[2019-10-31] VITALS: BP_SYST 133
[2019-10-31] MEDS: guaiFENesin 200 MG/CODEINE 20 MG/ 10 ML UDC PO PRN (01:23)
[2019-10-31] MEDS: ACETAMINOPHEN 500 MG TABLET PO SCH ×3 (06:30→22:17)
[2019-10-31 08:00] VITALS: BP_SYST 130
[2019-10-31] MEDS: SEVELAMER CARBONATE 800 MG TABLET PO SCH ×3 (08:00→17:42)
[2019-10-31] MEDS: hydrALAZINE HCL 10 MG TABLET PO SCH ×2 (09:00→20:28)
[2019-10-31] MEDS: amLODIPine BESYLATE 10 MG TABLET PO SCH (09:00)
[2019-10-31] MEDS: LUBIPROSTONE 24 MCG CAPSULE PO SCH ×2 (10:06→20:28)
[2019-10-31] MEDS: NEPHROVITE, (FOLIC ACID/VITAMIN B COMP W-C 1 TAB) PO SCH (10:08)
[2019-10-31] MEDS: PREGABALIN 25 MG CAPSULE (LYRICA) PO SCH (10:08)
[2019-10-31] MEDS: LORATADINE 10 MG TABLET PO SCH (10:08)
[2019-10-31] MEDS: SUCRALFATE 1 GM TABLET PO SCH (10:08)
[2019-10-31] MEDS: ATORVASTATIN 20 MG TABLET PO SCH (10:08)
[2019-10-31] MEDS: PANTOPRAZOLE SODIUM 40 MG TAB PO SCH (10:09)
[2019-10-31] MEDS: ASCORBIC ACID 500 MG TABLET PO SCH (10:10)
[2019-10-31] MEDS: LEVOTHYROXINE SODIUM 0.05 MG TABLET PO SCH (10:10)
[2019-10-31] MEDS: SENNOSIDES 8.6 MG TABLET PO SCH (10:10)
[2019-10-31] MEDS: CHOLECALCIFEROL (VITAMIN D3) 2,000 UNIT TABLET PO SCH (10:11)
[2019-10-31 12:00] VITALS: BP_SYST 128
[2019-10-31] MEDS ORDERED: HEPARIN SODIUM,PORCINE 5000 UNITS/ML VIAL MC ONE (13:15)
[2019-10-31 16:00] VITALS: BP_SYST 132
[2019-10-31] MEDS: cefTRIAXone 1 GM in D5W 50 ML IV SCH (17:42)
[2019-10-31 19:30] VITALS: BP_SYST 113
[2019-10-31] MEDS: ENOXAPARIN SODIUM 30 MG/0.3 ML SYRINGE SUBCUT SCH (20:29)
[2019-11-01 00:02] VITALS: BP_SYST 118
[2019-11-01] MEDS: ACETAMINOPHEN 500 MG TABLET PO SCH ×3 (05:00→21:40)
[2019-11-01 07:54] LABS: C-REACTIVE PROTEIN QUANT 27.5 mg/dL (0-0.5)
[2019-11-01 08:00] VITALS: BP_SYST 151
[2019-11-01] MEDS: SENNOSIDES 8.6 MG TABLET PO SCH (09:00)
[2019-11-01] MEDS: SEVELAMER CARBONATE 800 MG TABLET PO SCH ×3 (09:01→17:28)
[2019-11-01] MEDS: hydrALAZINE HCL 10 MG TABLET PO SCH ×2 (09:01→21:40)
[2019-11-01] MEDS: LUBIPROSTONE 24 MCG CAPSULE PO SCH ×2 (09:01→21:40)
[2019-11-01] MEDS: LORATADINE 10 MG TABLET PO SCH (09:03)
[2019-11-01] MEDS: SUCRALFATE 1 GM TABLET PO SCH (09:03)
[2019-11-01] MEDS: ATORVASTATIN 20 MG TABLET PO SCH (09:04)
[2019-11-01] MEDS: PREGABALIN 25 MG CAPSULE (LYRICA) PO SCH (09:04)
[2019-11-01] MEDS: amLODIPine BESYLATE 10 MG TABLET PO SCH (09:04)
[2019-11-01] MEDS: NEPHROVITE, (FOLIC ACID/VITAMIN B COMP W-C 1 TAB) PO SCH (09:04)
[2019-11-01] MEDS: LEVOTHYROXINE SODIUM 0.05 MG TABLET PO SCH (09:05)
[2019-11-01] MEDS: PANTOPRAZOLE SODIUM 40 MG TAB PO SCH (09:05)
[2019-11-01] MEDS: ASCORBIC ACID 500 MG TABLET PO SCH (09:05)
[2019-11-01] MEDS: CHOLECALCIFEROL (VITAMIN D3) 2,000 UNIT TABLET PO SCH (09:05)
[2019-11-01 12:00] VITALS: BP_SYST 127
[2019-11-01] MEDS: EPOETIN ALFA 3,000 UNITS/ML VIAL SUBCUT SCH (17:27)
[2019-11-01] MEDS: cefTRIAXone 1 GM in D5W 50 ML IV SCH (17:28)
[2019-11-01 17:29] VITALS: BP_SYST 137
[2019-11-01 20:00] VITALS: BP_SYST 115
[2019-11-01] MEDS: ENOXAPARIN SODIUM 30 MG/0.3 ML SYRINGE SUBCUT SCH (21:40)
[2019-11-02] VITALS: BP_SYST 135
[2019-11-02] MEDS: ACETAMINOPHEN 500 MG TABLET PO SCH ×3 (05:30→20:25)
[2019-11-02 07:02] LABS: BASOPHILS % (AUTO) 0.4 % (0.0-2.0); EOSINOPHILS # (AUTO) 0.4 K/uL (0.0-0.4); EOSINOPHILS % (AUTO) 5.5 % (0.0-4.0); HEMATOCRIT 24.5 % (36-48); HEMOGLOBIN 8.6 g/dL (12.0-16.0); LYMPHOCYTES % (AUTO) 14.8 % (20.5-51.5); MEAN CORPUSCULAR HEMOGLOBIN 32 pg (27-31); MEAN CORPUSCULAR HGB CONC 35 % (32-36); MEAN CORPUSCULAR VOLUME 90 fL (79.0-98.0); MONOCYTES # (AUTO) 0.4 K/uL (0.0-1.0); MONOCYTES % (AUTO) 5.8 % (1.7-9.3); NEUTROPHILS # (AUTO) 4.9 K/uL (1.8-7.7); NEUTROPHILS % (AUTO) 73.5 % (40.0-70.0); PLATELET COUNT (AUTO) 361 K/uL (130-430); RED BLOOD CELL COUNT(AUTO) 2.73 MIL/uL (4.2-6.2); RED CELL DISTRIBUTION WIDTH 15.1 % (9.0-15.0); WHITE BLOOD COUNT (AUTO) 6.7 K/uL (4.8-10.8)
[2019-11-02 07:25] LABS: ALBUMIN 2.6 g/dL (3.4-4.8); CALCIUM 9.2 mg/dL (8.4-11.0); PHOSPHORUS 3.5 mg/dL (2.7-4.5); TOTAL BILIRUBIN 0.7 mg/dL (0.0-1.0)
[2019-11-02 07:31] LABS: CREATININE 8.82 mg/dL (0.55-1.30)
[2019-11-02] MEDS: LUBIPROSTONE 24 MCG CAPSULE PO SCH ×2 (08:42→20:25)
[2019-11-02] MEDS: SEVELAMER CARBONATE 800 MG TABLET PO SCH ×3 (08:42→18:19)
[2019-11-02] MEDS: NEPHROVITE, (FOLIC ACID/VITAMIN B COMP W-C 1 TAB) PO SCH (08:43)
[2019-11-02] MEDS: LORATADINE 10 MG TABLET PO SCH (08:43)
[2019-11-02] MEDS: ATORVASTATIN 20 MG TABLET PO SCH (08:43)
[2019-11-02] MEDS: amLODIPine BESYLATE 10 MG TABLET PO SCH (08:43)
[2019-11-02] MEDS: PREGABALIN 25 MG CAPSULE (LYRICA) PO SCH (08:43)
[2019-11-02] MEDS: SUCRALFATE 1 GM TABLET PO SCH (08:43)
[2019-11-02] MEDS: hydrALAZINE HCL 10 MG TABLET PO SCH ×2 (08:43→20:26)
[2019-11-02 08:44] VITALS: BP_SYST 147
[2019-11-02] MEDS: PANTOPRAZOLE SODIUM 40 MG TAB PO SCH (08:44)
[2019-11-02] MEDS: LEVOTHYROXINE SODIUM 0.05 MG TABLET PO SCH (08:44)
[2019-11-02] MEDS: ASCORBIC ACID 500 MG TABLET PO SCH (08:44)
[2019-11-02] MEDS: CHOLECALCIFEROL (VITAMIN D3) 2,000 UNIT TABLET PO SCH (08:44)
[2019-11-02] MEDS: SENNOSIDES 8.6 MG TABLET PO SCH (08:44)
[2019-11-02 12:42] VITALS: BP_SYST 115
[2019-11-02 16:03] VITALS: BP_SYST 131
[2019-11-02] MEDS: cefTRIAXone 1 GM in D5W 50 ML IV SCH (18:19)
[2019-11-02 20:00] VITALS: BP_SYST 120
[2019-11-02] MEDS: ENOXAPARIN SODIUM 30 MG/0.3 ML SYRINGE SUBCUT SCH (20:26)
[2019-11-03] VITALS: BP_SYST 123
[2019-11-03] MEDS: ACETAMINOPHEN 500 MG TABLET PO SCH ×3 (05:47→22:00)
[2019-11-03 08:00] VITALS: BP_SYST 131
[2019-11-03] MEDS: PREGABALIN 25 MG CAPSULE (LYRICA) PO SCH (09:00)
[2019-11-03] MEDS: SENNOSIDES 8.6 MG TABLET PO SCH (09:00)
[2019-11-03] MEDS: LORATADINE 10 MG TABLET PO SCH (09:19)
[2019-11-03] MEDS: SUCRALFATE 1 GM TABLET PO SCH (09:19)
[2019-11-03] MEDS: LUBIPROSTONE 24 MCG CAPSULE PO SCH ×2 (09:19→21:06)
[2019-11-03] MEDS: ATORVASTATIN 20 MG TABLET PO SCH (09:19)
[2019-11-03] MEDS: NEPHROVITE, (FOLIC ACID/VITAMIN B COMP W-C 1 TAB) PO SCH (09:19)
[2019-11-03] MEDS: SEVELAMER CARBONATE 800 MG TABLET PO SCH ×3 (09:19→18:47)
[2019-11-03] MEDS: hydrALAZINE HCL 10 MG TABLET PO SCH ×2 (09:19→21:00)
[2019-11-03] MEDS: LEVOTHYROXINE SODIUM 0.05 MG TABLET PO SCH (09:20)
[2019-11-03] MEDS: amLODIPine BESYLATE 10 MG TABLET PO SCH (09:20)
[2019-11-03] MEDS: CHOLECALCIFEROL (VITAMIN D3) 2,000 UNIT TABLET PO SCH (09:20)
[2019-11-03] MEDS: ASCORBIC ACID 500 MG TABLET PO SCH (09:20)
[2019-11-03] MEDS: PANTOPRAZOLE SODIUM 40 MG TAB PO SCH (09:20)
[2019-11-03 12:00] VITALS: BP_SYST 118
[2019-11-03 20:00] VITALS: BP_SYST 110
[2019-11-03] MEDS: ENOXAPARIN SODIUM 30 MG/0.3 ML SYRINGE SUBCUT SCH (21:00)
[2019-11-04] VITALS: BP_SYST 124
[2019-11-04] MEDS: ACETAMINOPHEN 500 MG TABLET PO SCH ×3 (05:29→22:00)
[2019-11-04 08:00] VITALS: BP_SYST 150
[2019-11-04] MEDS: PANTOPRAZOLE SODIUM 40 MG TAB PO SCH (08:26)
[2019-11-04] MEDS: NEPHROVITE, (FOLIC ACID/VITAMIN B COMP W-C 1 TAB) PO SCH (08:26)
[2019-11-04] MEDS: ATORVASTATIN 20 MG TABLET PO SCH (08:26)
[2019-11-04] MEDS: ASCORBIC ACID 500 MG TABLET PO SCH (08:26)
[2019-11-04] MEDS: LORATADINE 10 MG TABLET PO SCH (08:27)
[2019-11-04] MEDS: SENNOSIDES 8.6 MG TABLET PO SCH (08:27)
[2019-11-04] MEDS: LEVOTHYROXINE SODIUM 0.05 MG TABLET PO SCH (08:28)
[2019-11-04] MEDS: CHOLECALCIFEROL (VITAMIN D3) 2,000 UNIT TABLET PO SCH (08:28)
[2019-11-04] MEDS: LUBIPROSTONE 24 MCG CAPSULE PO SCH ×2 (08:28→20:41)
[2019-11-04] MEDS: SUCRALFATE 1 GM TABLET PO SCH (08:29)
[2019-11-04] MEDS: SEVELAMER CARBONATE 800 MG TABLET PO SCH ×3 (08:29→18:06)
[2019-11-04] MEDS: PREGABALIN 25 MG CAPSULE (LYRICA) PO SCH (09:00)
[2019-11-04] MEDS: hydrALAZINE HCL 10 MG TABLET PO SCH ×2 (09:02→20:42)
[2019-11-04] MEDS: amLODIPine BESYLATE 10 MG TABLET PO SCH (09:02)
[2019-11-04 12:00] VITALS: BP_SYST 135
[2019-11-04 16:00] VITALS: BP_SYST 131
[2019-11-04] MEDS: EPOETIN ALFA 3,000 UNITS/ML VIAL SUBCUT SCH (18:06)
[2019-11-04 20:00] VITALS: BP_SYST 134
[2019-11-04] MEDS: ENOXAPARIN SODIUM 30 MG/0.3 ML SYRINGE SUBCUT SCH (20:43)
[2019-11-05] VITALS: BP_SYST 128
[2019-11-05] MEDS: ACETAMINOPHEN 500 MG TABLET PO SCH ×3 (06:00→16:00)
[2019-11-05 08:45] VITALS: BP_SYST 145
[2019-11-05] MEDS ORDERED: HEPARIN SODIUM,PORCINE 5000 UNITS/ML VIAL SUBCUT ONE (09:00)
[2019-11-05] MEDS: PREGABALIN 25 MG CAPSULE (LYRICA) PO SCH (09:00)
[2019-11-05] MEDS: hydrALAZINE HCL 10 MG TABLET PO SCH ×2 (09:02→21:00)
[2019-11-05] MEDS: SEVELAMER CARBONATE 800 MG TABLET PO SCH ×3 (09:02→16:53)
[2019-11-05] MEDS: LORATADINE 10 MG TABLET PO SCH (09:02)
[2019-11-05] MEDS: SUCRALFATE 1 GM TABLET PO SCH (09:02)
[2019-11-05] MEDS: ATORVASTATIN 20 MG TABLET PO SCH (09:02)
[2019-11-05] MEDS: LUBIPROSTONE 24 MCG CAPSULE PO SCH ×2 (09:02→20:20)
[2019-11-05] MEDS: SENNOSIDES 8.6 MG TABLET PO SCH (09:03)
[2019-11-05] MEDS: ASCORBIC ACID 500 MG TABLET PO SCH (09:03)
[2019-11-05] MEDS: amLODIPine BESYLATE 10 MG TABLET PO SCH (09:03)
[2019-11-05] MEDS: LEVOTHYROXINE SODIUM 0.05 MG TABLET PO SCH (09:03)
[2019-11-05] MEDS: PANTOPRAZOLE SODIUM 40 MG TAB PO SCH (09:03)
[2019-11-05] MEDS: CHOLECALCIFEROL (VITAMIN D3) 2,000 UNIT TABLET PO SCH (09:03)
[2019-11-05] MEDS: NEPHROVITE, (FOLIC ACID/VITAMIN B COMP W-C 1 TAB) PO SCH (09:03)
[2019-11-05 10:03] LABS: BASOPHILS # (AUTO) 0.1 K/uL (0.0-0.2); BASOPHILS % (AUTO) 1.7 % (0.0-2.0); EOSINOPHILS # (AUTO) 0.3 K/uL (0.0-0.4); EOSINOPHILS % (AUTO) 3.7 % (0.0-4.0); HEMATOCRIT 24.3 % (36-48); HEMOGLOBIN 8.5 g/dL (12.0-16.0); LYMPHOCYTES # (AUTO) 1.7 K/uL (1.0-5.5); LYMPHOCYTES % (AUTO) 20.5 % (20.5-51.5); MEAN CORPUSCULAR HEMOGLOBIN 32 pg (27-31); MEAN CORPUSCULAR HGB CONC 35 % (32-36); MEAN CORPUSCULAR VOLUME 91 fL (79.0-98.0); MONOCYTES # (AUTO) 0.2 K/uL (0.0-1.0); PLATELET COUNT (AUTO) 514 K/uL (130-430); RED BLOOD CELL COUNT(AUTO) 2.68 MIL/uL (4.2-6.2); RED CELL DISTRIBUTION WIDTH 15.5 % (9.0-15.0); WHITE BLOOD COUNT (AUTO) 8.3 K/uL (4.8-10.8)
[2019-11-05 10:15] LABS: CALCIUM 9.1 mg/dL (8.4-11.0); POTASSIUM 4.4 mmol/L (3.5-5.1)
[2019-11-05 10:17] LABS: CREATININE 10.45 mg/dL (0.55-1.30)
[2019-11-05 10:29] LABS: NEUTROPHILS % (AUTO) 72.1 % (40.0-70.0)
[2019-11-05 12:00] VITALS: BP_SYST 123
[2019-11-05 14:00] VITALS: BP_SYST 109
[2019-11-05 16:50] VITALS: BP_SYST 126
[2019-11-05 20:15] VITALS: BP_SYST 132
[2019-11-05] MEDS: ENOXAPARIN SODIUM 30 MG/0.3 ML SYRINGE SUBCUT SCH (21:00)
[2019-11-06 00:05] VITALS: BP_SYST 135
[2019-11-06] MEDS: ACETAMINOPHEN 500 MG TABLET PO SCH ×3 (05:45→22:29)
[2019-11-06 09:00] VITALS: BP_SYST 165
[2019-11-06] MEDS: PREGABALIN 25 MG CAPSULE (LYRICA) PO SCH (09:00)
[2019-11-06] MEDS: SENNOSIDES 8.6 MG TABLET PO SCH (09:17)
[2019-11-06] MEDS: LUBIPROSTONE 24 MCG CAPSULE PO SCH ×2 (09:17→22:27)
[2019-11-06] MEDS: SEVELAMER CARBONATE 800 MG TABLET PO SCH ×3 (09:17→17:27)
[2019-11-06] MEDS: hydrALAZINE HCL 10 MG TABLET PO SCH ×2 (09:17→21:00)
[2019-11-06] MEDS: LORATADINE 10 MG TABLET PO SCH (09:17)
[2019-11-06] MEDS: ASCORBIC ACID 500 MG TABLET PO SCH (09:17)
[2019-11-06] MEDS: SUCRALFATE 1 GM TABLET PO SCH (09:18)
[2019-11-06] MEDS: PANTOPRAZOLE SODIUM 40 MG TAB PO SCH (09:18)
[2019-11-06] MEDS: LEVOTHYROXINE SODIUM 0.05 MG TABLET PO SCH (09:18)
[2019-11-06] MEDS: CHOLECALCIFEROL (VITAMIN D3) 2,000 UNIT TABLET PO SCH (09:18)
[2019-11-06] MEDS: NEPHROVITE, (FOLIC ACID/VITAMIN B COMP W-C 1 TAB) PO SCH (09:18)
[2019-11-06] MEDS: ATORVASTATIN 20 MG TABLET PO SCH (09:19)
[2019-11-06] MEDS: amLODIPine BESYLATE 10 MG TABLET PO SCH (09:19)
[2019-11-06 13:35] VITALS: BP_SYST 130
[2019-11-06] MEDS: EPOETIN ALFA 3,000 UNITS/ML VIAL SUBCUT SCH (17:27)
[2019-11-06 19:00] VITALS: BP_SYST 132
[2019-11-06 20:00] VITALS: BP_SYST 133
[2019-11-06] MEDS: ENOXAPARIN SODIUM 30 MG/0.3 ML SYRINGE SUBCUT SCH (21:00)
[2019-11-07] MEDS: ACETAMINOPHEN 500 MG TABLET PO SCH ×3 (06:00→21:09)
[2019-11-07 08:00] VITALS: BP_SYST 176
[2019-11-07] MEDS: hydrALAZINE HCL 10 MG TABLET PO SCH ×2 (09:00→21:00)
[2019-11-07] MEDS: amLODIPine BESYLATE 10 MG TABLET PO SCH (09:00)
[2019-11-07] MEDS: PREGABALIN 25 MG CAPSULE (LYRICA) PO SCH (09:00)
[2019-11-07] MEDS: ASCORBIC ACID 500 MG TABLET PO SCH (09:13)
[2019-11-07] MEDS: SEVELAMER CARBONATE 800 MG TABLET PO SCH ×3 (09:13→17:58)
[2019-11-07] MEDS: SENNOSIDES 8.6 MG TABLET PO SCH (09:13)
[2019-11-07] MEDS: ATORVASTATIN 20 MG TABLET PO SCH (09:14)
[2019-11-07] MEDS: CHOLECALCIFEROL (VITAMIN D3) 2,000 UNIT TABLET PO SCH (09:14)
[2019-11-07] MEDS: SUCRALFATE 1 GM TABLET PO SCH (09:14)
[2019-11-07] MEDS: LORATADINE 10 MG TABLET PO SCH (09:14)
[2019-11-07] MEDS: PANTOPRAZOLE SODIUM 40 MG TAB PO SCH (09:15)
[2019-11-07] MEDS: LEVOTHYROXINE SODIUM 0.05 MG TABLET PO SCH (09:16)
[2019-11-07] MEDS: NEPHROVITE, (FOLIC ACID/VITAMIN B COMP W-C 1 TAB) PO SCH (09:16)
[2019-11-07] MEDS: LUBIPROSTONE 24 MCG CAPSULE PO SCH ×2 (09:18→21:06)
[2019-11-07 12:37] VITALS: BP_SYST 105
[2019-11-07 16:50] VITALS: BP_SYST 132
[2019-11-07] MEDS ORDERED: HEPARIN SODIUM, PORCINE 10,000 UNITS/ 10 ML VIAL MC ONE ×2 (17:28→17:30)
[2019-11-07 20:00] VITALS: BP_SYST 126
[2019-11-07] MEDS: ENOXAPARIN SODIUM 30 MG/0.3 ML SYRINGE SUBCUT SCH (21:00)
[2019-11-08 00:02] VITALS: BP_SYST 117
[2019-11-08] MEDS: ACETAMINOPHEN 500 MG TABLET PO SCH ×2 (06:49→15:26)
[2019-11-08] MEDS: LEVOTHYROXINE SODIUM 0.05 MG TABLET PO SCH (07:24)
[2019-11-08] MEDS: SEVELAMER CARBONATE 800 MG TABLET PO SCH ×2 (07:24→12:24)
[2019-11-08 08:00] VITALS: BP_SYST 155
[2019-11-08 08:28] LABS: BASOPHILS # (AUTO) 0.1 K/uL (0.0-0.2); BASOPHILS % (AUTO) 0.9 % (0.0-2.0); EOSINOPHILS # (AUTO) 0.2 K/uL (0.0-0.4); EOSINOPHILS % (AUTO) 2.8 % (0.0-4.0); HEMATOCRIT 25.8 % (36-48); HEMOGLOBIN 8.9 g/dL (12.0-16.0); LYMPHOCYTES # (AUTO) 1.7 K/uL (1.0-5.5); LYMPHOCYTES % (AUTO) 22.1 % (20.5-51.5); MEAN CORPUSCULAR HEMOGLOBIN 31 pg (27-31); MEAN CORPUSCULAR HGB CONC 34 % (32-36); MEAN CORPUSCULAR VOLUME 91 fL (79.0-98.0); MONOCYTES # (AUTO) 0.6 K/uL (0.0-1.0); MONOCYTES % (AUTO) 7.8 % (1.7-9.3); NEUTROPHILS # (AUTO) 5.2 K/uL (1.8-7.7); NEUTROPHILS % (AUTO) 66.4 % (40.0-70.0); PLATELET COUNT (AUTO) 515 K/uL (130-430); RED BLOOD CELL COUNT(AUTO) 2.82 MIL/uL (4.2-6.2); RED CELL DISTRIBUTION WIDTH 16.1 % (9.0-15.0); WHITE BLOOD COUNT (AUTO) 7.8 K/uL (4.8-10.8)
[2019-11-08] MEDS: PREGABALIN 25 MG CAPSULE (LYRICA) PO SCH (08:28)
[2019-11-08] MEDS: ASCORBIC ACID 500 MG TABLET PO SCH (08:28)
[2019-11-08] MEDS: PANTOPRAZOLE SODIUM 40 MG TAB PO SCH (08:29)
[2019-11-08] MEDS: hydrALAZINE HCL 10 MG TABLET PO SCH (08:29)
[2019-11-08] MEDS: CHOLECALCIFEROL (VITAMIN D3) 2,000 UNIT TABLET PO SCH (08:29)
[2019-11-08] MEDS: SUCRALFATE 1 GM TABLET PO SCH (08:30)
[2019-11-08] MEDS: LUBIPROSTONE 24 MCG CAPSULE PO SCH (08:30)
[2019-11-08] MEDS: ATORVASTATIN 20 MG TABLET PO SCH (08:30)
[2019-11-08] MEDS: NEPHROVITE, (FOLIC ACID/VITAMIN B COMP W-C 1 TAB) PO SCH (08:30)
[2019-11-08] MEDS: amLODIPine BESYLATE 10 MG TABLET PO SCH (08:31)
[2019-11-08] MEDS: LORATADINE 10 MG TABLET PO SCH (08:31)
[2019-11-08] MEDS: SENNOSIDES 8.6 MG TABLET PO SCH (08:31)
[2019-11-08 08:53] LABS: ALBUMIN 2.6 g/dL (3.4-4.8); CALCIUM 8.8 mg/dL (8.4-11.0); CREATININE 6.57 mg/dL (0.55-1.30); PHOSPHORUS 3.6 mg/dL (2.7-4.5); POTASSIUM 3.5 mmol/L (3.5-5.1); TOTAL BILIRUBIN 0.6 mg/dL (0.0-1.0)
[2019-11-08 13:00] VITALS: BP_SYST 130
[2019-11-08 15:33] VITALS: BP_SYST 130
[2019-11-08] MEDS: EPOETIN ALFA 3,000 UNITS/ML VIAL SUBCUT SCH (16:42)
== END 2019-11-08 17:00 | disposition home or self-care (01) | DRG 177 ==
LOC: EEVIPCON 15:01 → SED 15:01 → SMU 18:23
PROVIDERS: ADMIT Family Medicine; ATTEND Family Medicine
PROC: 5A1D70Z Performance of Urinary Filtration, Intermittent, Less than 6 Hours Per Day (ICD-10-PCS; principal; 2019-10-27)
PROC: 5A1D70Z Performance of Urinary Filtration, Intermittent, Less than 6 Hours Per Day (ICD-10-PCS; 2019-10-29)
PROC: 5A1D70Z Performance of Urinary Filtration, Intermittent, Less than 6 Hours Per Day (ICD-10-PCS; 2019-10-31)
PROC: 5A1D70Z Performance of Urinary Filtration, Intermittent, Less than 6 Hours Per Day (ICD-10-PCS; 2019-11-02)
PROC: 5A1D70Z Performance of Urinary Filtration, Intermittent, Less than 6 Hours Per Day (ICD-10-PCS; 2019-11-04)
PROC: 5A1D70Z Performance of Urinary Filtration, Intermittent, Less than 6 Hours Per Day (ICD-10-PCS; 2019-11-06)
DX: U07.1 COVID-19 (principal); N18.6 End stage renal disease; J12.89 Other viral pneumonia; I50.30 Unspecified diastolic (congestive) heart failure; I13.2 Hypertensive heart and chronic kidney disease with heart failure and with stage 5 chronic kidney disease, or end stage renal disease; N25.81 Secondary hyperparathyroidism of renal origin; D64.9 Anemia, unspecified; D72.810 Lymphocytopenia; K59.00 Constipation, unspecified; E11.22 Type 2 diabetes mellitus with diabetic chronic kidney disease; E78.5 Hyperlipidemia, unspecified; Z78.9 Other specified health status; Z98.84 Bariatric surgery status; Z99.2 Dependence on renal dialysis; Z88.1 Allergy status to other antibiotic agents; Z79.899 Other long term (current) drug therapy
CPT/HCPCS: 36415; 36600; 71045; 71046-TC; 80048; 80053; 82550-TC; 82728; 82803-TC; 82962; 83605; 83615-TC; 83880; 84100-TC; 84484; 85025; 85379; 85384-TC; 85610-TC; 85730-TC; 86140; 86710; 86886; 86900; 86901; 87040-TC; 87081; 90935; 90937; 93005; 99285; J0456; J0696; J0885; J1644; J1650; J7030; J7050; J7060; U0003-CS

== ENCOUNTER 2020-01-16 01:06 | Emergency (ER) | payer OTHER, MEDICAID ==
[~2020-01-16] VITALS: Ht 162.6 cm; Wt 77.1 kg
[~2020-01-16 01:06] MED LIST changes: +AMLO10TA88 PO; +CHOL100034 PO; +HYDR-4037 PO; +HYDR-4100 PO; +IBUP-1017 PO; +LEVO50CA2 PO; +LYR50 PO; +PANT40TA4 PO; +PHO667 PO; +ROSU10TA29 PO; +SENN8.6T19 PO; +[UNRECOGNIZED DRUG - OTHER] PO
[2020-01-16 01:10] VITALS: BP_SYST 144
[2020-01-16 03:35] VITALS: BP_SYST 128
== END 2020-01-16 03:35 | disposition home or self-care (01) ==
LOC: SED 01:06
DX: S93.402A Sprain of unspecified ligament of left ankle, initial encounter (principal); S93.602A Unspecified sprain of left foot, initial encounter; I10 Essential (primary) hypertension; E11.9 Type 2 diabetes mellitus without complications; Z88.1 Allergy status to other antibiotic agents; Z79.899 Other long term (current) drug therapy; X50.0XXA Overexertion from strenuous movement or load, initial encounter; Y93.89 Activity, other specified; Y92.89 Other specified places as the place of occurrence of the external cause; Y99.8 Other external cause status
CPT/HCPCS: 73564; 73590-TC; 99284

== ENCOUNTER 2020-07-13 21:14 | Inpatient (IN) | payer OTHER, MEDICAID, SELFPAY ==
[~2020-07-13] VITALS: Ht 162.6 cm; Wt 76.7 kg
[~2020-07-13 21:14] MED LIST changes: -PANT40TA4 PO; +PANT40TA45 PO
[2020-07-13 21:33] VITALS: BP_SYST 110
[2020-07-13 21:59] LABS: BASOPHILS # (AUTO) 0.1 K/uL (0.0-0.2); BASOPHILS % (AUTO) 0.5 % (0.0-2.0); EOSINOPHILS % (AUTO) 0.3 % (0.0-4.0); HEMATOCRIT 28.3 % (36-48); HEMOGLOBIN 9.7 g/dL (12.0-16.0); LYMPHOCYTES # (AUTO) 1.6 K/uL (1.0-5.5); LYMPHOCYTES % (AUTO) 9.9 % (20.5-51.5); MEAN CORPUSCULAR HEMOGLOBIN 30 pg (27-31); MEAN CORPUSCULAR HGB CONC 34 % (32-36); MEAN CORPUSCULAR VOLUME 89 fL (79.0-98.0); MONOCYTES # (AUTO) 0.9 K/uL (0.0-1.0); MONOCYTES % (AUTO) 5.3 % (1.7-9.3); NEUTROPHILS # (AUTO) 13.6 K/uL (1.8-7.7); PLATELET COUNT (AUTO) 361 K/uL (130-430); RED BLOOD CELL COUNT(AUTO) 3.19 MIL/uL (4.2-6.2); RED CELL DISTRIBUTION WIDTH 13.6 % (9.0-15.0); WHITE BLOOD COUNT (AUTO) 16.2 K/uL (4.8-10.8)
[2020-07-13 22:32] LABS: CALCIUM 9.2 mg/dL (8.4-11.0); POTASSIUM 4.2 mmol/L (3.5-5.1)
[2020-07-13 22:36] LABS: CREATININE 10.14 mg/dL (0.55-1.30); TOTAL BILIRUBIN 0.8 mg/dL (0.0-1.0)
[2020-07-13 22:37] LABS: ALBUMIN 2.6 g/dL (3.4-4.8); FREE T4 (FREE THYROXINE) 1.4 ng/dL (0.6-1.6); THYROID STIMULATING HORMONE 2.68 uIu/mL (0.34-4.82)
[2020-07-13 22:40] LABS: ERYTHROCYTE SEDIMENTATION RATE 109 MM/HR (0-20)
[2020-07-13 23:00] LABS: C-REACTIVE PROTEIN QUANT 27.6 mg/dL (0-0.5)
[2020-07-13 23:03] LABS: PROTHROMBIN TIME 9.9 SECS (9.5-12.5)
[2020-07-13] MEDS ORDERED: CEFEPIME 1 GM in D5W 50 ML IV ONE (23:30)
[2020-07-13] MEDS ORDERED: VANCOMYCIN HCL 1,000 MG in NS 250 ML IV ONE (23:30)
[2020-07-13] MEDS ORDERED: VANCOMYCIN HCL 1000 MG/VIAL IV ONE (23:36)
[2020-07-13] MEDS ORDERED: CEFEPIME 1 GM/VIAL (MAXIPIME) ONE (23:37)
[2020-07-14 01:29] VITALS: BP_SYST 112
[2020-07-14] MEDS ORDERED: ACETAMINOPHEN 325 MG TABLET ONE (06:27)
[2020-07-14] MEDS: ACETAMINOPHEN 325 MG TABLET PO PRN (06:28)
[2020-07-14 08:00] VITALS: BP_SYST 101
[2020-07-14] MEDS ORDERED: cefTRIAXone 1 GM VIAL IV SCH (09:00)
[2020-07-14 11:35] VITALS: BP_SYST 118
[2020-07-14] MEDS: INSULIN REGULAR, HUMAN 100 UNITS/ML, 10 ML VIAL (humuLIN R) SUBCUT PRN ×2 (12:01→21:00)
[2020-07-14] MEDS ORDERED: ASCO500T20 PO (13:55)
[2020-07-14] MEDS ORDERED: ZINC50TA69 PO (13:55)
[2020-07-14] MEDS ORDERED: FOLI-43 PO (13:55)
[2020-07-14] MEDS ORDERED: CHOL200075 PO (13:55)
[2020-07-14] MEDS ORDERED: HYDR-4038 PO (13:55)
[2020-07-14] MEDS ORDERED: ACETAMINOPHEN 325 MG TABLET PO PRN (15:30)
[2020-07-14 16:08] VITALS: BP_SYST 135
[2020-07-14 20:00] VITALS: BP_SYST 96
[2020-07-14] MEDS: NEPHROVITE, (FOLIC ACID/VITAMIN B COMP W-C 1 TAB) PO SCH (20:55)
[2020-07-14] MEDS ORDERED: SENNOSIDES 8.6 MG TABLET PO SCH (21:00)
[2020-07-14] MEDS ORDERED: CEFEPIME 1 GM in D5W 50 ML IV SCH (21:00)
[2020-07-14] MEDS: CALCIUM ACETATE 667 MG CAP PO SCH (21:15)
[2020-07-14] MEDS: CEFEPIME 1 GM in D5W 50 ML IV SCH (21:24)
[2020-07-15] VITALS: BP_SYST 113
[2020-07-15] MEDS: ACETAMINOPHEN 325 MG TABLET PO PRN ×2 (00:34→21:28)
[2020-07-15] MEDS ORDERED: PANTOPRAZOLE SODIUM 40 MG TAB PO ONE (01:00)
[2020-07-15 06:41] LABS: BASOPHILS % (AUTO) 0.4 % (0.0-2.0); EOSINOPHILS # (AUTO) 0.4 K/uL (0.0-0.4); HEMATOCRIT 28.1 % (36-48); HEMOGLOBIN 9.5 g/dL (12.0-16.0); LYMPHOCYTES # (AUTO) 1.5 K/uL (1.0-5.5); LYMPHOCYTES % (AUTO) 14.7 % (20.5-51.5); MEAN CORPUSCULAR HEMOGLOBIN 31 pg (27-31); MEAN CORPUSCULAR HGB CONC 34 % (32-36); MEAN CORPUSCULAR VOLUME 90 fL (79.0-98.0); MONOCYTES # (AUTO) 0.9 K/uL (0.0-1.0); MONOCYTES % (AUTO) 9.2 % (1.7-9.3); NEUTROPHILS # (AUTO) 7.2 K/uL (1.8-7.7); NEUTROPHILS % (AUTO) 71.7 % (40.0-70.0); PLATELET COUNT (AUTO) 387 K/uL (130-430); RED BLOOD CELL COUNT(AUTO) 3.12 MIL/uL (4.2-6.2); RED CELL DISTRIBUTION WIDTH 13.7 % (9.0-15.0); WHITE BLOOD COUNT (AUTO) 10.1 K/uL (4.8-10.8)
[2020-07-15 06:50] LABS: ALBUMIN 2.4 g/dL (3.4-4.8); CALCIUM 9.4 mg/dL (8.4-11.0); PHOSPHORUS 5.2 mg/dL (2.7-4.5); POTASSIUM 4.1 mmol/L (3.5-5.1); TOTAL BILIRUBIN 0.4 mg/dL (0.0-1.0)
[2020-07-15 07:14] LABS: CREATININE 8.9 mg/dL (0.55-1.30)
[2020-07-15 07:42] LABS: VANCOMYCIN,RANDOM 13.1 ug/mL
[2020-07-15 08:00] VITALS: BP_SYST 126
[2020-07-15] MEDS: CALCIUM ACETATE 667 MG CAP PO SCH ×4 (08:00→17:37)
[2020-07-15] MEDS ORDERED: PANTOPRAZOLE SODIUM 40 MG TAB PO SCH (09:00)
[2020-07-15] MEDS ORDERED: VANCOMYCIN HCL 750 MG in NS 250 ML IV ONE (09:00)
[2020-07-15] MEDS: hydrALAZINE HCL 25 MG TABLET PO SCH ×2 (09:00→09:31)
[2020-07-15] MEDS: ATORVASTATIN 20 MG TABLET PO SCH (09:32)
[2020-07-15] MEDS: LEVOTHYROXINE SODIUM 0.05 MG TABLET PO SCH (09:32)
[2020-07-15] MEDS: ASCORBIC ACID 500 MG TABLET PO SCH (09:32)
[2020-07-15] MEDS: FOLIC ACID 1 MG TABLET PO SCH (09:32)
[2020-07-15] MEDS ORDERED: MILK OF MAGNESIA 30 ML UDC PO ONE (14:15)
[2020-07-15] MEDS ORDERED: SENNOSIDES 8.6 MG TABLET PO ONE (14:30)
[2020-07-15 16:04] VITALS: BP_SYST 111
[2020-07-15] MEDS: PANTOPRAZOLE SODIUM 40 MG TAB PO SCH (21:17)
[2020-07-15] MEDS: NEPHROVITE, (FOLIC ACID/VITAMIN B COMP W-C 1 TAB) PO SCH (21:17)
[2020-07-15] MEDS: CEFEPIME 1 GM in D5W 50 ML IV SCH (21:18)
[2020-07-16 04:58] VITALS: BP_SYST 116
[2020-07-16 08:00] VITALS: BP_SYST 124
[2020-07-16] MEDS: hydrALAZINE HCL 25 MG TABLET PO SCH (08:17)
[2020-07-16] MEDS: CALCIUM ACETATE 667 MG CAP PO SCH ×3 (08:17→17:30)
[2020-07-16] MEDS: ASCORBIC ACID 500 MG TABLET PO SCH (08:19)
[2020-07-16] MEDS: LEVOTHYROXINE SODIUM 0.05 MG TABLET PO SCH (08:19)
[2020-07-16] MEDS: SENNOSIDES 8.6 MG TABLET PO SCH (08:19)
[2020-07-16] MEDS: FOLIC ACID 1 MG TABLET PO SCH (08:19)
[2020-07-16] MEDS: ATORVASTATIN 20 MG TABLET PO SCH (08:20)
[2020-07-16] MEDS: INSULIN REGULAR, HUMAN 100 UNITS/ML, 10 ML VIAL (humuLIN R) SUBCUT PRN ×3 (11:26→21:09)
[2020-07-16 12:46] VITALS: BP_SYST 131
[2020-07-16 16:55] VITALS: BP_SYST 130
[2020-07-16] MEDS: DAPTOmycin 450 MG in NS 50 ML IV SCH (17:14)
[2020-07-16] MEDS: EPOETIN ALFA 10,000 UNITS/ML VIAL SUBCUT SCH (17:30)
[2020-07-16] MEDS: PANTOPRAZOLE SODIUM 40 MG TAB PO SCH (20:48)
[2020-07-16] MEDS: NEPHROVITE, (FOLIC ACID/VITAMIN B COMP W-C 1 TAB) PO SCH (20:49)
[2020-07-16] MEDS: CEFEPIME 1 GM in D5W 50 ML IV SCH (20:49)
[2020-07-17 00:37] VITALS: BP_SYST 104
[2020-07-17 08:31] LABS: ALBUMIN 2.4 g/dL (3.4-4.8); CALCIUM 9.6 mg/dL (8.4-11.0); POTASSIUM 4.2 mmol/L (3.5-5.1); TOTAL BILIRUBIN 0.5 mg/dL (0.0-1.0)
[2020-07-17 08:41] LABS: CREATININE 8.72 mg/dL (0.55-1.30)
[2020-07-17 08:53] LABS: VANCOMYCIN,RANDOM 19.5 ug/mL
[2020-07-17] MEDS: SENNOSIDES 8.6 MG TABLET PO SCH (09:15)
[2020-07-17] MEDS: FOLIC ACID 1 MG TABLET PO SCH (09:15)
[2020-07-17] MEDS: MILK OF MAGNESIA 30 ML UDC PO PRN (09:16)
[2020-07-17] MEDS: CALCIUM ACETATE 667 MG CAP PO SCH ×3 (09:16→17:26)
[2020-07-17] MEDS: ATORVASTATIN 20 MG TABLET PO SCH (09:17)
[2020-07-17] MEDS: hydrALAZINE HCL 25 MG TABLET PO SCH (09:17)
[2020-07-17] MEDS: ASCORBIC ACID 500 MG TABLET PO SCH (09:18)
[2020-07-17] MEDS: LEVOTHYROXINE SODIUM 0.05 MG TABLET PO SCH (09:18)
[2020-07-17 09:20] VITALS: BP_SYST 103
[2020-07-17 12:00] VITALS: BP_SYST 109
[2020-07-17 16:00] VITALS: BP_SYST 100
[2020-07-17] MEDS: INSULIN REGULAR, HUMAN 100 UNITS/ML, 10 ML VIAL (humuLIN R) SUBCUT PRN ×2 (17:26→21:10)
[2020-07-17] MEDS: CEFEPIME 1 GM in D5W 50 ML IV SCH (21:00)
[2020-07-17] MEDS: NEPHROVITE, (FOLIC ACID/VITAMIN B COMP W-C 1 TAB) PO SCH (21:00)
[2020-07-17] MEDS: PANTOPRAZOLE SODIUM 40 MG TAB PO SCH (21:00)
[2020-07-18 00:26] VITALS: BP_SYST 108
[2020-07-18] MEDS: hydrALAZINE HCL 25 MG TABLET PO SCH (09:00)
[2020-07-18] MEDS: LEVOTHYROXINE SODIUM 0.05 MG TABLET PO SCH (09:16)
[2020-07-18] MEDS: MILK OF MAGNESIA 30 ML UDC PO PRN (09:16)
[2020-07-18] MEDS: CALCIUM ACETATE 667 MG CAP PO SCH ×3 (09:16→17:24)
[2020-07-18] MEDS: FOLIC ACID 1 MG TABLET PO SCH (09:16)
[2020-07-18] MEDS: SENNOSIDES 8.6 MG TABLET PO SCH (09:16)
[2020-07-18] MEDS: ASCORBIC ACID 500 MG TABLET PO SCH (09:17)
[2020-07-18] MEDS: ATORVASTATIN 20 MG TABLET PO SCH (09:22)
[2020-07-18 09:23] VITALS: BP_SYST 119
[2020-07-18 12:12] VITALS: BP_SYST 118
[2020-07-18 16:01] VITALS: BP_SYST 119
[2020-07-18] MEDS: DAPTOmycin 450 MG in NS 50 ML IV SCH (17:24)
[2020-07-18] MEDS: EPOETIN ALFA 10,000 UNITS/ML VIAL SUBCUT SCH (17:24)
[2020-07-18 20:00] VITALS: BP_SYST 109
[2020-07-18] MEDS: PANTOPRAZOLE SODIUM 40 MG TAB PO SCH (21:27)
[2020-07-18] MEDS: NEPHROVITE, (FOLIC ACID/VITAMIN B COMP W-C 1 TAB) PO SCH (21:28)
[2020-07-18] MEDS: CEFEPIME 1 GM in D5W 50 ML IV SCH (21:28)
[2020-07-18] MEDS: INSULIN REGULAR, HUMAN 100 UNITS/ML, 10 ML VIAL (humuLIN R) SUBCUT PRN (22:12)
[2020-07-19 00:09] VITALS: BP_SYST 109
[2020-07-19] MEDS: LEVOTHYROXINE SODIUM 0.05 MG TABLET PO SCH (08:19)
[2020-07-19] MEDS: ASCORBIC ACID 500 MG TABLET PO SCH (08:20)
[2020-07-19] MEDS: SENNOSIDES 8.6 MG TABLET PO SCH (08:20)
[2020-07-19] MEDS: ATORVASTATIN 20 MG TABLET PO SCH (08:20)
[2020-07-19] MEDS: FOLIC ACID 1 MG TABLET PO SCH (08:20)
[2020-07-19] MEDS: CALCIUM ACETATE 667 MG CAP PO SCH ×3 (08:20→17:49)
[2020-07-19] MEDS: hydrALAZINE HCL 25 MG TABLET PO SCH (08:21)
[2020-07-19 08:23] VITALS: BP_SYST 107
[2020-07-19] MEDS: INSULIN REGULAR, HUMAN 100 UNITS/ML, 10 ML VIAL (humuLIN R) SUBCUT PRN ×2 (11:57→21:21)
[2020-07-19 12:12] VITALS: BP_SYST 108
[2020-07-19 16:00] VITALS: BP_SYST 109
[2020-07-19 20:00] VITALS: BP_SYST 117
[2020-07-19] MEDS: CEFEPIME 1 GM in D5W 50 ML IV SCH (21:12)
[2020-07-19] MEDS: NEPHROVITE, (FOLIC ACID/VITAMIN B COMP W-C 1 TAB) PO SCH (21:13)
[2020-07-19] MEDS: PANTOPRAZOLE SODIUM 40 MG TAB PO SCH (21:13)
[2020-07-20 06:50] LABS: BASOPHILS % (AUTO) 0.4 % (0.0-2.0); EOSINOPHILS # (AUTO) 0.6 K/uL (0.0-0.4); EOSINOPHILS % (AUTO) 5.7 % (0.0-4.0); HEMOGLOBIN 9.2 g/dL (12.0-16.0); LYMPHOCYTES # (AUTO) 2.3 K/uL (1.0-5.5); LYMPHOCYTES % (AUTO) 22.6 % (20.5-51.5); MEAN CORPUSCULAR HEMOGLOBIN 30 pg (27-31); MEAN CORPUSCULAR HGB CONC 33 % (32-36); MEAN CORPUSCULAR VOLUME 91 fL (79.0-98.0); MONOCYTES # (AUTO) 0.9 K/uL (0.0-1.0); MONOCYTES % (AUTO) 8.9 % (1.7-9.3); NEUTROPHILS # (AUTO) 6.4 K/uL (1.8-7.7); NEUTROPHILS % (AUTO) 62.4 % (40.0-70.0); PLATELET COUNT (AUTO) 486 K/uL (130-430); RED BLOOD CELL COUNT(AUTO) 3.09 MIL/uL (4.2-6.2); RED CELL DISTRIBUTION WIDTH 14.3 % (9.0-15.0); WHITE BLOOD COUNT (AUTO) 10.3 K/uL (4.8-10.8)
[2020-07-20 07:20] LABS: POTASSIUM 4.8 mmol/L (3.5-5.1)
[2020-07-20 08:11] LABS: CREATININE 10.2 mg/dL (0.55-1.30)
[2020-07-20 08:33] VITALS: BP_SYST 141
[2020-07-20] MEDS: LEVOTHYROXINE SODIUM 0.05 MG TABLET PO SCH (08:35)
[2020-07-20] MEDS: SENNOSIDES 8.6 MG TABLET PO SCH (08:35)
[2020-07-20] MEDS: ATORVASTATIN 20 MG TABLET PO SCH (08:35)
[2020-07-20] MEDS: ASCORBIC ACID 500 MG TABLET PO SCH (08:35)
[2020-07-20] MEDS: hydrALAZINE HCL 25 MG TABLET PO SCH (08:36)
[2020-07-20] MEDS: CALCIUM ACETATE 667 MG CAP PO SCH ×3 (08:36→17:55)
[2020-07-20] MEDS: FOLIC ACID 1 MG TABLET PO SCH (08:36)
[2020-07-20 12:00] VITALS: BP_SYST 111
[2020-07-20 16:12] VITALS: BP_SYST 94
[2020-07-20] MEDS: DAPTOmycin 450 MG in NS 50 ML IV SCH (17:57)
[2020-07-20] MEDS: INSULIN REGULAR, HUMAN 100 UNITS/ML, 10 ML VIAL (humuLIN R) SUBCUT PRN ×2 (17:59→20:17)
[2020-07-20 20:00] VITALS: BP_SYST 116
[2020-07-20] MEDS: CEFEPIME 1 GM in D5W 50 ML IV SCH (20:12)
[2020-07-20] MEDS: NEPHROVITE, (FOLIC ACID/VITAMIN B COMP W-C 1 TAB) PO SCH (20:12)
[2020-07-20] MEDS: PANTOPRAZOLE SODIUM 40 MG TAB PO SCH (20:12)
[2020-07-21] VITALS: BP_SYST 120
[2020-07-21 08:00] VITALS: BP_SYST 138
[2020-07-21] MEDS: CALCIUM ACETATE 667 MG CAP PO SCH ×3 (08:19→18:09)
[2020-07-21] MEDS: ASCORBIC ACID 500 MG TABLET PO SCH (08:19)
[2020-07-21] MEDS: SENNOSIDES 8.6 MG TABLET PO SCH (08:19)
[2020-07-21] MEDS: LEVOTHYROXINE SODIUM 0.05 MG TABLET PO SCH (08:20)
[2020-07-21] MEDS: ATORVASTATIN 20 MG TABLET PO SCH (08:20)
[2020-07-21] MEDS: FOLIC ACID 1 MG TABLET PO SCH (08:20)
[2020-07-21] MEDS: hydrALAZINE HCL 25 MG TABLET PO SCH (08:20)
[2020-07-21 12:31] VITALS: BP_SYST 128
[2020-07-21 16:33] VITALS: BP_SYST 125
[2020-07-21] MEDS: EPOETIN ALFA 10,000 UNITS/ML VIAL SUBCUT SCH (18:09)
[2020-07-21] MEDS: INSULIN REGULAR, HUMAN 100 UNITS/ML, 10 ML VIAL (humuLIN R) SUBCUT PRN ×2 (18:15→21:07)
[2020-07-21 20:00] VITALS: BP_SYST 100
[2020-07-21] MEDS: CEFEPIME 1 GM in D5W 50 ML IV SCH (20:56)
[2020-07-21] MEDS: NEPHROVITE, (FOLIC ACID/VITAMIN B COMP W-C 1 TAB) PO SCH (20:57)
[2020-07-21] MEDS: PANTOPRAZOLE SODIUM 40 MG TAB PO SCH (20:57)
[2020-07-22 00:03] VITALS: BP_SYST 125
[2020-07-22] MEDS: INSULIN REGULAR, HUMAN 100 UNITS/ML, 10 ML VIAL (humuLIN R) SUBCUT PRN (06:44)
[2020-07-22 08:00] VITALS: BP_SYST 106
[2020-07-22] MEDS: CALCIUM ACETATE 667 MG CAP PO SCH ×2 (08:06→12:21)
[2020-07-22] MEDS: FOLIC ACID 1 MG TABLET PO SCH (08:06)
[2020-07-22] MEDS: LEVOTHYROXINE SODIUM 0.05 MG TABLET PO SCH (08:06)
[2020-07-22] MEDS: ASCORBIC ACID 500 MG TABLET PO SCH (08:06)
[2020-07-22] MEDS: SENNOSIDES 8.6 MG TABLET PO SCH (08:06)
[2020-07-22] MEDS: ATORVASTATIN 20 MG TABLET PO SCH (08:06)
[2020-07-22] MEDS: hydrALAZINE HCL 25 MG TABLET PO SCH (09:00)
[2020-07-22 12:00] VITALS: BP_SYST 111
[2020-07-22 13:46] VITALS: BP_SYST 140
[2020-07-22] MEDS: CEFEPIME 1 GM in D5W 50 ML IV SCH (15:30)
== END 2020-07-22 16:45 | disposition home health service (06) | DRG 564 ==
LOC: SED 21:14 → EEVIPCON 23:24 → STU 23:24 → SMU 23:25
PROVIDERS: ADMIT Family Medicine; ATTEND Family Medicine
PROC: 5A1D70Z Performance of Urinary Filtration, Intermittent, Less than 6 Hours Per Day (ICD-10-PCS; 2020-07-14)
PROC: 5A1D70Z Performance of Urinary Filtration, Intermittent, Less than 6 Hours Per Day (ICD-10-PCS; 2020-07-16)
PROC: 5A1D70Z Performance of Urinary Filtration, Intermittent, Less than 6 Hours Per Day (ICD-10-PCS; 2020-07-18)
PROC: 5A1D70Z Performance of Urinary Filtration, Intermittent, Less than 6 Hours Per Day (ICD-10-PCS; 2020-07-21)
PROC: 05HY33Z Insertion of Infusion Device into Upper Vein, Percutaneous Approach (ICD-10-PCS; principal; 2020-07-22)
PROC: B54MZZA Ultrasonography of Right Upper Extremity Veins, Guidance (ICD-10-PCS; 2020-07-22)
DX: T87.43 Infection of amputation stump, right lower extremity (principal); N18.6 End stage renal disease; M86.8X7 Other osteomyelitis, ankle and foot; I12.0 Hypertensive chronic kidney disease with stage 5 chronic kidney disease or end stage renal disease; Y83.5 Amputation of limb(s) as the cause of abnormal reaction of the patient, or of later complication, without mention of misadventure at the time of the procedure; E11.69 Type 2 diabetes mellitus with other specified complication; E11.51 Type 2 diabetes mellitus with diabetic peripheral angiopathy without gangrene; E11.22 Type 2 diabetes mellitus with diabetic chronic kidney disease; Z20.822 Contact with and (suspected) exposure to COVID-19; D63.1 Anemia in chronic kidney disease; E11.610 Type 2 diabetes mellitus with diabetic neuropathic arthropathy; E11.621 Type 2 diabetes mellitus with foot ulcer; L97.519 Non-pressure chronic ulcer of other part of right foot with unspecified severity; Z98.84 Bariatric surgery status; Z99.2 Dependence on renal dialysis; Z88.1 Allergy status to other antibiotic agents
CPT/HCPCS: 36415; 71045; 73721; 80048; 80053; 80202-TC; 82550-TC; 82728; 82962; 83605; 83615-TC; 83880; 84100-TC; 84439; 84443-TC; 84484; 85025; 85379; 85384-TC; 85610-TC; 85651-TC; 85730-TC; 86140; 87040-TC; 87070-TC; 87075-TC; 87081; 87186-TC; 90935; 90937; 93005; 93923; 96365; 96366; 96367; J0692; J0878; J0885; J1815; J3370; J7050; J7060; U0003

== ENCOUNTER 2020-07-26 16:05 | Emergency (ER) | payer OTHER, MEDICAID ==
[~2020-07-26] VITALS: Ht 162.6 cm; Wt 76.2 kg
[~2020-07-26 16:05] MED LIST changes: -ACET-2634 PO; +ASCO500T20 PO; -CHOL100034 PO; +CHOL200075 PO; +FOLI-43 PO; -HYDR-4037 PO; +HYDR-4038 PO; -HYDR-4100 PO; -IBUP-1017 PO; -LINA72CA PO; -LORA10TA7 PO; -LYR50 PO; -SEVE800T8 PO; -SUCR1TAB78 PO; +ZINC50TA69 PO; -[UNRECOGNIZED DRUG - OTHER] PO
[2020-07-26 16:14] VITALS: BP_SYST 117
[2020-07-26 20:28] VITALS: BP_SYST 148
== END 2020-07-26 20:29 | disposition home or self-care (01) ==
LOC: SED 16:05
DX: T84.293A Other mechanical complication of internal fixation device of bones of foot and toes, initial encounter (principal); I12.0 Hypertensive chronic kidney disease with stage 5 chronic kidney disease or end stage renal disease; E11.22 Type 2 diabetes mellitus with diabetic chronic kidney disease; N18.6 End stage renal disease; Z88.5 Allergy status to narcotic agent; Z88.1 Allergy status to other antibiotic agents; Z99.2 Dependence on renal dialysis
CPT/HCPCS: 71045; 99283; C1751

== ENCOUNTER 2021-02-03 08:15 | Emergency (ER) | payer OTHER, MEDICAID ==
[~2021-02-03] VITALS: Ht 162.6 cm; Wt 81.6 kg
[2021-02-03 08:34] VITALS: BP_SYST 109
--- NOTE | 2021-02-03 08:38 | NUR ---
HARRIET AND ASKED TO WAIT IN THE WAITING ROOM
--- NOTE | 2021-02-03 08:48 | NUR ---
Patient to H1 to gown for evaluation. Side rails up.
--- NOTE | 2021-02-03 09:00 | NUR ---
ER at bedside examining patient.
--- NOTE | 2021-02-03 09:10 | NUR ---
PT WAS CUTTING HER FIFTH DIGIT OF HER LEFT FOOT. WHEN SHE CUT THE SKIN ON HER TOE
[2021-02-03 09:25] VITALS: BP_SYST 109
--- NOTE | 2021-02-03 09:26 | NUR ---
Patient given written and verbal discharge instructions and verbalizes understanding. ER MD discussed with patient the results and treatment provided. Patient in stable condition. ID arm band removed. Patient educated on pain management and to follow up with PMD. Pain Scale 0/10. Opportunity for questions provided and answered. Medication side effect fact sheet provided.
== END 2021-02-03 09:25 | disposition home or self-care (01) ==
LOC: SED 08:15
DX: S91.115A Laceration without foreign body of left lesser toe(s) without damage to nail, initial encounter (principal); I10 Essential (primary) hypertension; E11.9 Type 2 diabetes mellitus without complications; Z88.1 Allergy status to other antibiotic agents; Z79.899 Other long term (current) drug therapy; W45.8XXA Other foreign body or object entering through skin, initial encounter; Y93.89 Activity, other specified; Y92.89 Other specified places as the place of occurrence of the external cause; Y99.8 Other external cause status
CPT/HCPCS: 99282

== ENCOUNTER 2021-10-31 14:14 | Emergency (ER) | payer OTHER, MEDICAID ==
[~2021-10-31] VITALS: Ht 162.6 cm; Wt 85.7 kg
[2021-10-31 14:34] VITALS: BP_SYST 115
--- NOTE | 2021-10-31 14:34 | NUR ---
Patient to ER bed 2 for evaluation. Side rails up. Report given to Huan MURPHY.
--- NOTE | 2021-10-31 14:37 | NUR ---
PT WAS W/C'D TO ROOM 2 BY TRIAGE NURSE FOR BILATERAL LEG PAIN, UNABLE TO WALK. PT WAS ON HD. MWF. PT WAS DONE HD YESTERDAY. PT SUSPECTED HERSELF "GOT BLOOD CLOTS".
[2021-10-31] MEDS ORDERED: HYDROcodone/ACETAMIN 5-325 MG TAB (NORCO/ VICODIN) PO ONE (15:15)
[2021-10-31 15:41] LABS: BASOPHILS % (AUTO) 0.5 % (0.0-2.0); EOSINOPHILS # (AUTO) 0.3 K/uL (0.0-0.4); EOSINOPHILS % (AUTO) 4.2 % (0.0-4.0); HEMOGLOBIN 11.7 g/dL (12.0-16.0); LYMPHOCYTES # (AUTO) 1.2 K/uL (1.0-5.5); LYMPHOCYTES % (AUTO) 18.7 % (20.5-51.5); MEAN CORPUSCULAR HEMOGLOBIN 26 pg (27-31); MEAN CORPUSCULAR HGB CONC 32 % (32-36); MEAN CORPUSCULAR VOLUME 81 fL (79.0-98.0); MONOCYTES # (AUTO) 0.6 K/uL (0.0-1.0); MONOCYTES % (AUTO) 8.6 % (1.7-9.3); NEUTROPHILS # (AUTO) 4.5 K/uL (1.8-7.7); PLATELET COUNT (AUTO) 217 K/uL (130-430); RED BLOOD CELL COUNT(AUTO) 4.44 MIL/uL (4.2-6.2); RED CELL DISTRIBUTION WIDTH 15.9 % (9.0-15.0); WHITE BLOOD COUNT (AUTO) 6.6 K/uL (4.8-10.8)
[2021-10-31 15:50] LABS: ANION GAP 13 (5-15); CALCIUM 8.8 mg/dL (8.4-11.0); CHLORIDE 94 mmol/L (98-107); GLUCOSE 119 mg/dL (70-99); POTASSIUM 3.7 mmol/L (3.5-5.1); SODIUM SERUM 140 mmol/L (136-145); UREA NITROGEN, BLOOD 21 mg/dL (8-21)
--- NOTE | 2021-10-31 15:51 | NUR ---
PT SAID SHE CAN DEAL WITH PAIN. NORCO WAS REFUSED BY PT.
[2021-10-31 15:52] LABS: GFR AFRICAN AMERICAN 9 mL/min (>90)
[2021-10-31 16:04] LABS: ALANINE AMINOTRANSFERASE 529 U/L (12-78); ALBUMIN 2.8 g/dL (3.4-4.8); ASPARTATE AMINOTRANSFERASE 1173 U/L (10-37); TOTAL BILIRUBIN 0.7 mg/dL (0.0-1.0)
[2021-10-31 16:08] LABS: C-REACTIVE PROTEIN QUANT < 0.2 mg/dL (0-0.5)
[2021-10-31 16:20] LABS: ERYTHROCYTE SEDIMENTATION RATE 33 MM/HR (0-20)
[2021-10-31 19:09] VITALS: BP_SYST 175
--- NOTE | 2021-10-31 19:19 | NUR ---
REPORT RECIEVED FROM JEFFREY LAWRENCE REGARDING PT CONDITION, PT PENDING DISCHARGE. MD AT THE BEDSIDE
--- NOTE | 2021-10-31 19:41 | NUR ---
Patient given written and verbal discharge instructions and verbalizes understanding. ER MD discussed with patient the results and treatment provided. Patient in stable condition. ID arm band removed. Patient educated on pain management and to follow up with PMD. Opportunity for questions provided and answered. pt assisted outside by tech via wheelchair
== END 2021-10-31 19:43 | disposition home or self-care (01) ==
LOC: SED 14:14
DX: I70.203 Unspecified atherosclerosis of native arteries of extremities, bilateral legs (principal); M79.605 Pain in left leg; M79.604 Pain in right leg; E11.22 Type 2 diabetes mellitus with diabetic chronic kidney disease; N18.6 End stage renal disease; I12.0 Hypertensive chronic kidney disease with stage 5 chronic kidney disease or end stage renal disease; I10 Essential (primary) hypertension; Z88.1 Allergy status to other antibiotic agents; Z99.2 Dependence on renal dialysis; Z95.1 Presence of aortocoronary bypass graft; Z79.82 Long term (current) use of aspirin; Z79.899 Other long term (current) drug therapy
CPT/HCPCS: 36415; 80053; 83735; 85025; 85651-TC; 86140; 93005; 93970; 99285

== ENCOUNTER 2022-04-30 20:54 | Inpatient (IN) | payer OTHER, MEDICAID ==
[~2022-04-30] VITALS: Ht 162.6 cm; Wt 85.7 kg
[2022-04-30 21:10] VITALS: BP_SYST 133
[2022-04-30 21:21] LABS: BASOPHILS % (AUTO) 0.5 % (0.0-2.0); EOSINOPHILS # (AUTO) 0.1 K/uL (0.0-0.4); EOSINOPHILS % (AUTO) 1.9 % (0.0-4.0); LYMPHOCYTES # (AUTO) 0.7 K/uL (1.0-5.5); LYMPHOCYTES % (AUTO) 11.9 % (20.5-51.5); MEAN CORPUSCULAR HEMOGLOBIN 27 pg (27-31); MEAN CORPUSCULAR HGB CONC 33 % (32-36); MEAN CORPUSCULAR VOLUME 82 fL (79.0-98.0); MONOCYTES # (AUTO) 0.5 K/uL (0.0-1.0); NEUTROPHILS # (AUTO) 4.7 K/uL (1.8-7.7); NEUTROPHILS % (AUTO) 76.7 % (40.0-70.0); PLATELET COUNT (AUTO) 389 K/uL (130-430); RED BLOOD CELL COUNT(AUTO) 2.67 MIL/uL (4.2-6.2); RED CELL DISTRIBUTION WIDTH 17.1 % (9.0-15.0); WHITE BLOOD COUNT (AUTO) 6.1 K/uL (4.8-10.8)
[2022-04-30 21:23] LABS: HEMOGLOBIN 7.3 g/dL (12.0-16.0)
[2022-04-30 21:29] LABS: ANION GAP 9 (5-15); CHLORIDE 97 mmol/L (98-107)
[2022-04-30 21:30] LABS: CALCIUM 8.7 mg/dL (8.4-11.0); CREATININE 7.22 mg/dL (0.55-1.30); GLUCOSE 154 mg/dL (70-99); UREA NITROGEN, BLOOD 42 mg/dL (8-21)
[2022-04-30 21:32] LABS: GFR AFRICAN AMERICAN 8 mL/min (>90)
[2022-04-30 21:40] LABS: ALANINE AMINOTRANSFERASE 11 U/L (12-78); ALBUMIN 2.4 g/dL (3.4-4.8); ASPARTATE AMINOTRANSFERASE 22 U/L (10-37); TOTAL BILIRUBIN 0.4 mg/dL (0.0-1.0)
[2022-05-01] MEDS ORDERED: VANCOMYCIN HCL 1,000 MG in NS 250 ML IV ONE (01:15)
[2022-05-01] MEDS ORDERED: VANCOMYCIN HCL 1000 MG/VIAL IV ONE (01:32)
[2022-05-01] MEDS ORDERED: KETOROLAC TROMETHAMINE 60 MG/2 ML VIAL IM ONE (02:30)
[2022-05-01] MEDS ORDERED: IBUPROFEN 800 MG TABLET PO ONE (04:30)
[2022-05-01] MEDS ORDERED: HYDR-4037 PO (07:13)
[2022-05-01] MEDS ORDERED: MECL-160 PO (07:13)
[2022-05-01] MEDS ORDERED: ASPI-1393 PO (07:13)
[2022-05-01] MEDS ORDERED: LINA145C PO (07:13)
[2022-05-01] MEDS ORDERED: SEVE800T8 PO (07:13)
[2022-05-01] MEDS ORDERED: HYDR-3927 PO (07:13)
[2022-05-01] MEDS ORDERED: NALOXONE HCL 0.4 MG/ML AMP (NARCAN) IVP PRN (14:15)
[2022-05-01] MEDS ORDERED: HYDROcodone/ACETAMIN 10-325 MG TAB PO PRN (14:15)
[2022-05-01 14:40] VITALS: BP_SYST 167
[2022-05-01 17:31] VITALS: BP_SYST 146
[2022-05-01] MEDS: CALCIUM ACETATE 667 MG CAP PO SCH (18:05)
[2022-05-01] MEDS: SEVELAMER CARBONATE 800 MG TABLET PO SCH (18:05)
[2022-05-01 20:00] VITALS: BP_SYST 136
[2022-05-01] MEDS ORDERED: MECLIZINE HCL 25 MG TABLET (ANITVERT) PO PRN (21:00)
[2022-05-01] MEDS: NEPHROVITE, (FOLIC ACID/VITAMIN B COMP W-C 1 TAB) PO SCH (21:25)
[2022-05-01] MEDS: SENNOSIDES 8.6 MG TABLET PO SCH (21:26)
[2022-05-01] MEDS: IBUPROFEN 800 MG TABLET PO PRN (21:29)
[2022-05-02] MEDS: IBUPROFEN 800 MG TABLET PO PRN ×2 (05:31→14:15)
[2022-05-02 06:17] VITALS: BP_SYST 103
[2022-05-02 08:04] LABS: CALCIUM 8.2 mg/dL (8.4-11.0); CREATININE 5.77 mg/dL (0.55-1.30); VANCOMYCIN,RANDOM 27.8 ug/mL
[2022-05-02 08:05] VITALS: BP_SYST 154
[2022-05-02 08:24] LABS: EOSINOPHILS # (AUTO) 0.2 K/uL (0.0-0.4); EOSINOPHILS % (AUTO) 5.3 % (0.0-4.0); HEMOGLOBIN 7.1 g/dL (12.0-16.0); LYMPHOCYTES # (AUTO) 0.8 K/uL (1.0-5.5); LYMPHOCYTES % (AUTO) 19.8 % (20.5-51.5); MEAN CORPUSCULAR HEMOGLOBIN 27 pg (27-31); MEAN CORPUSCULAR HGB CONC 33 % (32-36); MEAN CORPUSCULAR VOLUME 82 fL (79.0-98.0); MONOCYTES # (AUTO) 0.5 K/uL (0.0-1.0); MONOCYTES % (AUTO) 11.9 % (1.7-9.3); NEUTROPHILS # (AUTO) 2.6 K/uL (1.8-7.7); PLATELET COUNT (AUTO) 325 K/uL (130-430); RED BLOOD CELL COUNT(AUTO) 2.62 MIL/uL (4.2-6.2); RED CELL DISTRIBUTION WIDTH 16.8 % (9.0-15.0); WHITE BLOOD COUNT (AUTO) 4.2 K/uL (4.8-10.8)
[2022-05-02] MEDS: SEVELAMER CARBONATE 800 MG TABLET PO SCH ×3 (08:46→18:09)
[2022-05-02] MEDS ORDERED: CYCLOBENZAPRINE HCL 10 MG TABLET (FLEXERIL) PO SCH (09:00)
[2022-05-02] MEDS: amLODIPine BESYLATE 10 MG TABLET PO SCH (09:00)
[2022-05-02] MEDS: hydrALAZINE HCL 25 MG TABLET PO SCH (09:25)
[2022-05-02] MEDS: ASPIRIN 81 MG TABLET(ECOTRIN) PO SCH (09:25)
[2022-05-02] MEDS: PANTOPRAZOLE SODIUM 40 MG TAB PO SCH (09:26)
[2022-05-02] MEDS: CALCIUM ACETATE 667 MG CAP PO SCH ×3 (09:27→18:10)
[2022-05-02] MEDS: ASCORBIC ACID 500 MG TABLET PO SCH (09:27)
[2022-05-02] MEDS: FOLIC ACID 1 MG TABLET PO SCH (09:27)
[2022-05-02 09:38] LABS: TOTAL IRON BIND. CAPACITY 163 ug/dL (250-450)
[2022-05-02 10:09] LABS: HEMATOCRIT 21.6 % (36-48)
[2022-05-02] MEDS ORDERED: TICAGRELOR 60 MG TABLET PO SCH (12:00)
[2022-05-02 13:22] VITALS: BP_SYST 164
[2022-05-02] MEDS ORDERED: EPOETIN ALFA-EPBX 20,000 UNITS/ML VIAL SUBCUT ONE (13:30)
[2022-05-02 16:50] VITALS: BP_SYST 122
[2022-05-02] MEDS ORDERED: SOD FERRIC GLUC COMPLEX/SUC 125 MG in NS 100 ML IV SCH (20:00)
[2022-05-02 20:15] VITALS: BP_SYST 139
[2022-05-02] MEDS: NEPHROVITE, (FOLIC ACID/VITAMIN B COMP W-C 1 TAB) PO SCH (21:47)
[2022-05-02] MEDS: SENNOSIDES 8.6 MG TABLET PO SCH (21:47)
[2022-05-02] MEDS: TICAGRELOR 60 MG TABLET PO SCH (21:47)
[2022-05-03 02:00] VITALS: BP_SYST 161
[2022-05-03] MEDS: IBUPROFEN 800 MG TABLET PO PRN (04:05)
[2022-05-03 05:00] VITALS: BP_SYST 132
[2022-05-03 06:00] VITALS: BP_SYST 125
[2022-05-03 08:06] LABS: FOLATE (FOLIC ACID) >20.0 ng/mL (>3.0)
[2022-05-03] MEDS: SOD FERRIC GLUC COMPLEX/SUC 125 MG in NS 100 ML IV SCH (09:00)
[2022-05-03] MEDS: SEVELAMER CARBONATE 800 MG TABLET PO SCH ×3 (09:42→17:49)
[2022-05-03] MEDS: ASCORBIC ACID 500 MG TABLET PO SCH (09:43)
[2022-05-03] MEDS: ASPIRIN 81 MG TABLET(ECOTRIN) PO SCH (09:43)
[2022-05-03] MEDS: FOLIC ACID 1 MG TABLET PO SCH (09:43)
[2022-05-03] MEDS: PANTOPRAZOLE SODIUM 40 MG TAB PO SCH (09:44)
[2022-05-03] MEDS: CALCIUM ACETATE 667 MG CAP PO SCH ×3 (09:44→17:49)
[2022-05-03] MEDS: TICAGRELOR 60 MG TABLET PO SCH ×2 (09:56→21:05)
[2022-05-03] MEDS: hydrALAZINE HCL 25 MG TABLET PO SCH (09:57)
[2022-05-03] MEDS: amLODIPine BESYLATE 10 MG TABLET PO SCH (10:01)
[2022-05-03] MEDS ORDERED: *CUBICIN 6 MG/KG Q48H/PHARMACY XX PRN (10:45)
[2022-05-03] MEDS ORDERED: CEFEPIME 2 GM in D5W 100 ML IV SCH (10:45)
[2022-05-03] MEDS: DAPTOmycin 500 MG in NS 50 ML IV SCH (13:34)
[2022-05-03] MEDS ORDERED: CEFEPIME 1 GM in D5W 100 ML IV ONE (14:00)
[2022-05-03] MEDS ORDERED: HONEY WOUND DRESSING 1 EACH TP ONE (17:30)
[2022-05-03] MEDS ORDERED: HONEY WOUND DRESSING 1 EACH TP PRN (17:30)
[2022-05-03 20:00] VITALS: BP_SYST 134
[2022-05-03] MEDS: SENNOSIDES 8.6 MG TABLET PO SCH (21:04)
[2022-05-03] MEDS: NEPHROVITE, (FOLIC ACID/VITAMIN B COMP W-C 1 TAB) PO SCH (21:04)
[2022-05-04 02:00] VITALS: BP_SYST 153
[2022-05-04] MEDS: IBUPROFEN 800 MG TABLET PO PRN ×2 (02:59→18:44)
[2022-05-04 08:00] VITALS: BP_SYST 144
[2022-05-04] MEDS: CALCIUM ACETATE 667 MG CAP PO SCH ×3 (08:44→18:36)
[2022-05-04] MEDS: SEVELAMER CARBONATE 800 MG TABLET PO SCH ×3 (08:44→18:36)
[2022-05-04] MEDS: ASCORBIC ACID 500 MG TABLET PO SCH (08:44)
[2022-05-04] MEDS: PANTOPRAZOLE SODIUM 40 MG TAB PO SCH (08:45)
[2022-05-04] MEDS: FOLIC ACID 1 MG TABLET PO SCH (08:45)
[2022-05-04] MEDS: ASPIRIN 81 MG TABLET(ECOTRIN) PO SCH (08:45)
[2022-05-04] MEDS: HONEY WOUND DRESSING 1 EACH TP SCH (09:00)
[2022-05-04] MEDS: TICAGRELOR 60 MG TABLET PO SCH ×2 (09:25→21:32)
[2022-05-04 10:32] LABS: FERRITIN 1960 ng/mL (15-150)
[2022-05-04 11:13] LABS: C-REACTIVE PROTEIN QUANT 3.1 mg/dL (0-0.5)
[2022-05-04 12:00] VITALS: BP_SYST 153
[2022-05-04] MEDS: CYCLOBENZAPRINE HCL 10 MG TABLET (FLEXERIL) PO PRN (13:31)
[2022-05-04] MEDS ORDERED: D5W IV SCH (14:00)
[2022-05-04] MEDS ORDERED: CEFEPIME IV SCH (14:00)
[2022-05-04 16:00] VITALS: BP_SYST 153
[2022-05-04] MEDS: EPOETIN ALFA-EPBX 4,000 UNITS/ML VIAL SUBCUT SCH (16:56)
[2022-05-04] MEDS: CEFEPIME 0.5 GM in D5W 50 ML IV SCH (16:57)
[2022-05-04] MEDS: SOD FERRIC GLUC COMPLEX/SUC 125 MG in NS 100 ML IV SCH (18:26)
[2022-05-04] MEDS: hydrALAZINE HCL 25 MG TABLET PO SCH (18:36)
[2022-05-04] MEDS: amLODIPine BESYLATE 10 MG TABLET PO SCH (18:36)
[2022-05-04 20:00] VITALS: BP_SYST 155
[2022-05-04] MEDS: NEPHROVITE, (FOLIC ACID/VITAMIN B COMP W-C 1 TAB) PO SCH (21:32)
[2022-05-04] MEDS: SENNOSIDES 8.6 MG TABLET PO SCH (21:32)
[2022-05-05 01:00] VITALS: BP_SYST 144
[2022-05-05] MEDS: CYCLOBENZAPRINE HCL 10 MG TABLET (FLEXERIL) PO PRN (02:03)
[2022-05-05] MEDS: SEVELAMER CARBONATE 800 MG TABLET PO SCH ×4 (08:00→18:00)
[2022-05-05] MEDS: CALCIUM ACETATE 667 MG CAP PO SCH ×4 (08:00→18:00)
[2022-05-05] MEDS: TICAGRELOR 60 MG TABLET PO SCH ×2 (08:55→21:20)
[2022-05-05] MEDS: PANTOPRAZOLE SODIUM 40 MG TAB PO SCH (08:55)
[2022-05-05] MEDS: FOLIC ACID 1 MG TABLET PO SCH (08:56)
[2022-05-05] MEDS: ASCORBIC ACID 500 MG TABLET PO SCH (08:56)
[2022-05-05] MEDS: ASPIRIN 81 MG TABLET(ECOTRIN) PO SCH (08:57)
[2022-05-05] MEDS: amLODIPine BESYLATE 10 MG TABLET PO SCH (08:57)
[2022-05-05] MEDS: hydrALAZINE HCL 25 MG TABLET PO SCH (08:57)
[2022-05-05] MEDS: HONEY WOUND DRESSING 1 EACH TP SCH (09:00)
[2022-05-05] MEDS ORDERED: *TOBRAMYCIN PER PHARMACY XX PRN (10:45)
[2022-05-05] MEDS ORDERED: TOBRAMYCIN SULFATE 100 MG in NS 50 ML IV ONE (12:00)
[2022-05-05] MEDS: ACETAMINOPHEN 325 MG TABLET PO PRN (12:21)
[2022-05-05 12:26] VITALS: BP_SYST 157
[2022-05-05] MEDS: DAPTOmycin 500 MG in NS 50 ML IV SCH (13:00)
[2022-05-05 16:56] VITALS: BP_SYST 145
[2022-05-05 20:10] VITALS: BP_SYST 152
[2022-05-05] MEDS: NEPHROVITE, (FOLIC ACID/VITAMIN B COMP W-C 1 TAB) PO SCH (21:19)
[2022-05-05] MEDS: SENNOSIDES 8.6 MG TABLET PO SCH (21:19)
[2022-05-06 00:10] VITALS: BP_SYST 147
[2022-05-06] MEDS: ACETAMINOPHEN 325 MG TABLET PO PRN ×3 (00:13→14:20)
[2022-05-06] MEDS: SEVELAMER CARBONATE 800 MG TABLET PO SCH ×3 (08:00→18:03)
[2022-05-06] MEDS: CALCIUM ACETATE 667 MG CAP PO SCH ×3 (08:00→18:18)
[2022-05-06 08:31] LABS: BASOPHILS % (AUTO) 0.8 % (0.0-2.0); EOSINOPHILS # (AUTO) 0.2 K/uL (0.0-0.4); EOSINOPHILS % (AUTO) 4.1 % (0.0-4.0); HEMATOCRIT 22.9 % (36-48); HEMOGLOBIN 7.6 g/dL (12.0-16.0); LYMPHOCYTES # (AUTO) 0.7 K/uL (1.0-5.5); LYMPHOCYTES % (AUTO) 15.1 % (20.5-51.5); MEAN CORPUSCULAR HEMOGLOBIN 27 pg (27-31); MEAN CORPUSCULAR HGB CONC 33 % (32-36); MEAN CORPUSCULAR VOLUME 83 fL (79.0-98.0); MONOCYTES # (AUTO) 0.3 K/uL (0.0-1.0); NEUTROPHILS # (AUTO) 3.3 K/uL (1.8-7.7); PLATELET COUNT (AUTO) 330 K/uL (130-430); RED BLOOD CELL COUNT(AUTO) 2.78 MIL/uL (4.2-6.2); WHITE BLOOD COUNT (AUTO) 4.5 K/uL (4.8-10.8)
[2022-05-06 08:35] VITALS: BP_SYST 148
[2022-05-06] MEDS: amLODIPine BESYLATE 10 MG TABLET PO SCH ×2 (08:37→09:00)
[2022-05-06] MEDS: SOD FERRIC GLUC COMPLEX/SUC 125 MG in NS 100 ML IV SCH (08:44)
[2022-05-06] MEDS: ASCORBIC ACID 500 MG TABLET PO SCH ×2 (08:45→09:06)
[2022-05-06] MEDS: FOLIC ACID 1 MG TABLET PO SCH ×2 (08:45→09:06)
[2022-05-06] MEDS: hydrALAZINE HCL 25 MG TABLET PO SCH ×3 (08:46→09:10)
[2022-05-06] MEDS: PANTOPRAZOLE SODIUM 40 MG TAB PO SCH ×2 (08:46→09:06)
[2022-05-06] MEDS: ASPIRIN 81 MG TABLET(ECOTRIN) PO SCH ×2 (08:46→09:06)
[2022-05-06 08:52] LABS: CALCIUM 9.3 mg/dL (8.4-11.0)
[2022-05-06 08:56] LABS: ALBUMIN 2.5 g/dL (3.4-4.8); TOTAL BILIRUBIN 0.5 mg/dL (0.0-1.0)
[2022-05-06] MEDS: TICAGRELOR 60 MG TABLET PO SCH ×3 (09:00→21:05)
[2022-05-06 09:06] LABS: CREATININE 8.79 mg/dL (0.55-1.30)
[2022-05-06 11:28] VITALS: BP_SYST 158
[2022-05-06] MEDS ORDERED: CALCIUM CARBONATE 500 MG/ TAB.CHEW PO PRN (13:45)
[2022-05-06] MEDS ORDERED: ONDANSETRON HCL 4 MG/2 ML VIAL IVP PRN (13:45)
[2022-05-06 15:31] VITALS: BP_SYST 155
[2022-05-06 17:27] LABS: PROTHROMBIN TIME 10.5 SECS (9.5-12.5)
[2022-05-06] MEDS: EPOETIN ALFA-EPBX 4,000 UNITS/ML VIAL SUBCUT SCH (18:04)
[2022-05-06] MEDS: CEFEPIME 0.5 GM in D5W 50 ML IV SCH (18:05)
[2022-05-06] MEDS: HONEY WOUND DRESSING 1 EACH TP SCH (18:06)
[2022-05-06] MEDS: IBUPROFEN 800 MG TABLET PO PRN (18:19)
[2022-05-06 20:00] VITALS: BP_SYST 132
[2022-05-06] MEDS: DOXYCYCLINE HYCLATE 100 MG CAPSULE PO SCH (21:03)
[2022-05-06] MEDS: SENNOSIDES 8.6 MG TABLET PO SCH (21:03)
[2022-05-06] MEDS: NEPHROVITE, (FOLIC ACID/VITAMIN B COMP W-C 1 TAB) PO SCH (21:03)
[2022-05-07 01:53] VITALS: BP_SYST 143
[2022-05-07 01:54] VITALS: BP_SYST 143
[2022-05-07] MEDS: ACETAMINOPHEN 325 MG TABLET PO PRN (03:59)
[2022-05-07 08:00] VITALS: BP_SYST 132
[2022-05-07 08:43] LABS: CALCIUM 8.9 mg/dL (8.4-11.0); CREATININE 6.38 mg/dL (0.55-1.30)
[2022-05-07] MEDS: SEVELAMER CARBONATE 800 MG TABLET PO SCH ×3 (09:13→12:17)
[2022-05-07] MEDS: ASCORBIC ACID 500 MG TABLET PO SCH (09:13)
[2022-05-07] MEDS: ASPIRIN 81 MG TABLET(ECOTRIN) PO SCH (09:13)
[2022-05-07] MEDS: CALCIUM ACETATE 667 MG CAP PO SCH ×3 (09:13→12:17)
[2022-05-07] MEDS: DOXYCYCLINE HYCLATE 100 MG CAPSULE PO SCH (09:14)
[2022-05-07] MEDS: TICAGRELOR 60 MG TABLET PO SCH (09:14)
[2022-05-07] MEDS: FOLIC ACID 1 MG TABLET PO SCH (09:14)
[2022-05-07] MEDS: PANTOPRAZOLE SODIUM 40 MG TAB PO SCH (09:14)
[2022-05-07] MEDS: hydrALAZINE HCL 25 MG TABLET PO SCH (09:15)
[2022-05-07] MEDS: HONEY WOUND DRESSING 1 EACH TP SCH (09:16)
[2022-05-07] MEDS: amLODIPine BESYLATE 10 MG TABLET PO SCH (09:16)
[2022-05-07] MEDS: SOD FERRIC GLUC COMPLEX/SUC 125 MG in NS 100 ML IV SCH (10:32)
[2022-05-07 11:50] VITALS: BP_SYST 156
[2022-05-07] MEDS: VANCOMYCIN HCL 500 MG in NS 100 ML IV ONE ×2 (12:30→14:10)
[2022-05-07] MEDS: CEFEPIME 0.5 GM in D5W 50 ML IV SCH ×2 (14:11→14:16)
[2022-05-07 17:31] VITALS: BP_SYST 158
[2022-05-07 17:44] VITALS: BP_SYST 158
[2022-05-19] MEDS ORDERED: NEOM28.37 TP ×2 (10:02)
== END 2022-05-07 18:18 | disposition home health service (06) | DRG 637 ==
LOC: SED 20:54 → SMU 05-01 02:57
PROVIDERS: ADMIT Family Medicine; ATTEND Family Medicine
PROC: 5A1D70Z Performance of Urinary Filtration, Intermittent, Less than 6 Hours Per Day (ICD-10-PCS; principal; 2022-05-01)
PROC: 5A1D70Z Performance of Urinary Filtration, Intermittent, Less than 6 Hours Per Day (ICD-10-PCS; 2022-05-03)
PROC: 5A1D70Z Performance of Urinary Filtration, Intermittent, Less than 6 Hours Per Day (ICD-10-PCS; 2022-05-06)
PROC: 05HM33Z Insertion of Infusion Device into Right Internal Jugular Vein, Percutaneous Approach (ICD-10-PCS; 2022-05-06)
DX: E11.69 Type 2 diabetes mellitus with other specified complication (principal); E43 Unspecified severe protein-calorie malnutrition; M86.8X7 Other osteomyelitis, ankle and foot; E11.610 Type 2 diabetes mellitus with diabetic neuropathic arthropathy; N18.6 End stage renal disease; E83.39 Other disorders of phosphorus metabolism; D64.9 Anemia, unspecified; E78.5 Hyperlipidemia, unspecified; L08.9 Local infection of the skin and subcutaneous tissue, unspecified; E03.9 Hypothyroidism, unspecified; Z20.822 Contact with and (suspected) exposure to COVID-19; E11.22 Type 2 diabetes mellitus with diabetic chronic kidney disease; Z88.6 Allergy status to analgesic agent; Z88.1 Allergy status to other antibiotic agents; Z79.899 Other long term (current) drug therapy; Z98.84 Bariatric surgery status; Z99.2 Dependence on renal dialysis; Z68.32 Body mass index [BMI] 32.0-32.9, adult
CPT/HCPCS: 36415; 71045; 73721; 80048; 80053; 80200; 80202; 82607; 82728; 82746; 83540; 83550; 83605; 84484; 85025; 85610-TC; 85651-TC; 85730-TC; 86140; 87040; 87070-TC; 87081; 87186-TC; 90935; 90937; 93005; 96365; 96366; 99285; C1751; J0692; J0878; J2405; J2916; J3260; J3370; J7030; J7050; J7060; Q5106

== ENCOUNTER 2022-05-08 18:58 | Emergency (ER) | payer OTHER, MEDICAID ==
[~2022-05-08] VITALS: Ht 162.6 cm; Wt 85.7 kg
[~2022-05-08 18:58] MED LIST changes: +ASPI-1393 PO; +HYDR-3927 PO; +HYDR-4037 PO; +LINA145C PO; +MECL-160 PO; +SEVE800T8 PO
[2022-05-08 20:00] VITALS: BP_SYST 110
--- NOTE | 2022-05-08 20:00 | NUR ---
Pt placed to ER waiting room in stable condition.
[2022-05-08] MEDS ORDERED: CEFEPIME 1 GM in D5W 50 ML IV ONE (20:15)
--- NOTE | 2022-05-08 21:00 | NUR ---
Dr. Slaughter assessing pt in triage.
--- NOTE | 2022-05-08 21:15 | NUR ---
[facility] Pt sent per Dr. 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
[2022-05-08] MEDS ORDERED: CEFEPIME 1 GM/VIAL (MAXIPIME) ONE (21:49)
[2022-05-08 22:00] VITALS: BP_SYST 148
--- NOTE | 2022-05-08 22:17 | NUR ---
Patient given written and verbal discharge instructions and verbalizes understanding. ER MD discussed with patient the results and treatment provided. Patient in stable condition. ID arm band removed. Opportunity for questions provided and answered. Medication side effect fact sheet provided.
[2022-05-09] MEDS ORDERED: FAMOTIDINE PF 20 MG/2 ML VIAL ONE (05:48)
[2022-05-09] MEDS ORDERED: METOCLOPRAMIDE HCL 10 MG/2 ML VIAL ONE (05:49)
[2022-05-09] MEDS ORDERED: ENOXAPARIN SODIUM 120 MG/0.8 ML SYRINGE ONE (06:25)
== END 2022-05-08 22:00 | disposition home or self-care (01) ==
LOC: SED 18:58
DX: M86.171 Other acute osteomyelitis, right ankle and foot (principal); E11.9 Type 2 diabetes mellitus without complications; I11.0 Hypertensive heart disease with heart failure; I50.9 Heart failure, unspecified; Z88.1 Allergy status to other antibiotic agents; Z79.899 Other long term (current) drug therapy
CPT/HCPCS: 99281; J0692; J1650; J2765; J3490

== ENCOUNTER 2022-05-09 20:15 | Emergency (ER) | payer OTHER, MEDICAID ==
[~2022-05-09] VITALS: Ht 162.6 cm; Wt 85.7 kg
--- NOTE | 2022-05-09 20:20 | NUR ---
DR. RAYO WITH PATIENT FOR [facility].
[2022-05-09] MEDS ORDERED: CEFEPIME 1 GM in D5W 50 ML IV ONE (20:30)
[2022-05-09 20:33] VITALS: BP_SYST 158
--- NOTE | 2022-05-09 20:42 | NUR ---
PT FROM HOME WITH C/O OF CELLULITIS TO THE RIGHT FOOT. PT STATES SHE WAS JUST DISCHARGE FROM [facility] FOR CELLULITIS AND WAS UNABLE TO OBTAIN ANTIBIOTICS PERSCRIBED, SO PT RETURNED FOR ANTIBIOTIC DOSE. PT A&O X4 AND SIMPLE COMMANDS. VSS.
[2022-05-09] MEDS ORDERED: CEFEPIME 1 GM/VIAL (MAXIPIME) ONE (20:50)
[2022-05-09 22:02] VITALS: BP_SYST 158
--- NOTE | 2022-05-09 22:02 | NUR ---
Patient given written and verbal discharge instructions and verbalizes understanding. ER DR. RAYO discussed with patient the results and treatment provided. Patient in stable condition. ID arm band removed. Patient educated on pain management and to follow up with PMD. Pain Scale 0. Opportunity for questions provided and answered. Medication side effect fact sheet provided.
== END 2022-05-09 22:02 | disposition home or self-care (01) ==
LOC: SED 20:15
DX: M86.171 Other acute osteomyelitis, right ankle and foot (principal); L03.115 Cellulitis of right lower limb; E11.9 Type 2 diabetes mellitus without complications; I11.0 Hypertensive heart disease with heart failure; I50.9 Heart failure, unspecified; Z88.1 Allergy status to other antibiotic agents; Z79.899 Other long term (current) drug therapy
CPT/HCPCS: 99284; 96365; J0692

== ENCOUNTER 2022-05-19 08:20 | Emergency (ER) | payer OTHER, MEDICAID ==
[~2022-05-19] VITALS: Ht 162.6 cm; Wt 85.7 kg
[2022-05-19 08:20] VITALS: BP_SYST 202
--- NOTE | 2022-05-19 08:20 | NUR ---
BROUGHT IN BY [facility] AND PLACED IN BED #3, TRIAGED. REPORT GIVEN TO BELINDA
--- NOTE | 2022-05-19 08:29 | NUR ---
ER at bedside examining patient.
--- NOTE | 2022-05-19 08:30 | NUR ---
First contact. Pt presently in bed talking to EMS and giggling.
[2022-05-19] MEDS ORDERED: BACITRACIN 1 GM OINT TP ONE ×2 (08:45→08:47)
--- NOTE | 2022-05-19 09:09 | NUR ---
Drsg change completed by refrigerator repair technician. Pt stated while walking from home she noticed her right foot bleeding. Pt admits to not having dressing on and states that the dressing [place] placed came off. Pt states pain 12 out of 10. Pt is smiling, no facial grimace noted, no guarding, no moaning noted.
[2022-05-19 09:19] LABS: BASOPHILS # (AUTO) 0.1 K/uL (0.0-0.2); BASOPHILS % (AUTO) 0.8 % (0.0-2.0); EOSINOPHILS # (AUTO) 0.3 K/uL (0.0-0.4); EOSINOPHILS % (AUTO) 4.6 % (0.0-4.0); HEMATOCRIT 24.3 % (36-48); HEMOGLOBIN 7.9 g/dL (12.0-16.0); LYMPHOCYTES # (AUTO) 0.9 K/uL (1.0-5.5); LYMPHOCYTES % (AUTO) 13.9 % (20.5-51.5); MEAN CORPUSCULAR HEMOGLOBIN 27 pg (27-31); MEAN CORPUSCULAR HGB CONC 33 % (32-36); MEAN CORPUSCULAR VOLUME 84 fL (79.0-98.0); MONOCYTES # (AUTO) 0.7 K/uL (0.0-1.0); MONOCYTES % (AUTO) 10.4 % (1.7-9.3); NEUTROPHILS # (AUTO) 4.6 K/uL (1.8-7.7); NEUTROPHILS % (AUTO) 70.3 % (40.0-70.0); PLATELET COUNT (AUTO) 255 K/uL (130-430); WHITE BLOOD COUNT (AUTO) 6.6 K/uL (4.8-10.8)
[2022-05-19 09:22] LABS: ANION GAP 6 (5-15); CALCIUM 9.5 mg/dL (8.4-11.0); CHLORIDE 96 mmol/L (98-107); GLUCOSE 137 mg/dL (70-99); UREA NITROGEN, BLOOD 63 mg/dL (8-21)
[2022-05-19 09:25] LABS: CREATININE 13.54 mg/dL (0.55-1.30); GFR AFRICAN AMERICAN 4 mL/min (>90)
[2022-05-19 09:27] LABS: ACETONE, SERUM NEGATIVE (NEGATIVE)
[2022-05-19 09:28] LABS: ALANINE AMINOTRANSFERASE 24 U/L (12-78); ALBUMIN 2.6 g/dL (3.4-4.8); ASPARTATE AMINOTRANSFERASE 39 U/L (10-37); C-REACTIVE PROTEIN QUANT 4.4 mg/dL (0-0.5); TOTAL BILIRUBIN 0.6 mg/dL (0.0-1.0)
[2022-05-19] MEDS ORDERED: [UNRECOGNIZED DRUG - CODE] TP (10:02)
[2022-05-19] MEDS ORDERED: NEOM28.37 TP (10:02)
[2022-05-19 10:56] VITALS: BP_SYST 154
--- NOTE | 2022-05-19 11:10 | NUR ---
Patient given written and verbal discharge instructions and verbalizes understanding. ER MD discussed with patient the results and treatment provided. Patient in stable condition. ID arm band removed.Rx of Neomycin/Baci Zn/Pmyx Bs/Pramox (Neosporin + Pain Relief Oint) and Povidone-Iodine (betadine) given. Patient educated on pain management and to follow up with PMD. Opportunity for questions provided and answered.
== END 2022-05-19 11:10 | disposition home or self-care (01) ==
LOC: SED 08:20
DX: S91.311A Laceration without foreign body, right foot, initial encounter (principal); E11.621 Type 2 diabetes mellitus with foot ulcer; L97.519 Non-pressure chronic ulcer of other part of right foot with unspecified severity; I10 Essential (primary) hypertension; Z88.1 Allergy status to other antibiotic agents; Z79.899 Other long term (current) drug therapy; W01.0XXA Fall on same level from slipping, tripping and stumbling without subsequent striking against object, initial encounter; Y93.89 Activity, other specified; Y92.89 Other specified places as the place of occurrence of the external cause; Y99.8 Other external cause status
CPT/HCPCS: 36415; 80053; 82009; 83605; 85025; 86140; 99284

== ENCOUNTER 2022-08-31 17:48 | Emergency (ER) | payer OTHER, MEDICAID ==
[~2022-08-31] VITALS: Ht 162.6 cm; Wt 85.7 kg
[~2022-08-31 17:48] MED LIST changes: -HYDR-4037 PO; -PHO667 PO; -SENN8.6T19 PO; +[UNRECOGNIZED DRUG - CODE] TP
[2022-08-31 17:56] VITALS: BP_SYST 131
--- NOTE | 2022-08-31 18:53 | NUR ---
Patient to ER bed 3 to gown for evaluation. Side rails up. Report given to JOHN/HEAVEN MURPHY.
--- NOTE | 2022-08-31 18:56 | NUR ---
ER at bedside examining patient.
[2022-08-31] MEDS ORDERED: ONDANSETRON HCL 4 MG/2 ML VIAL IVP ONE (19:15)
[2022-08-31] MEDS ORDERED: MORPHINE 4 MG INJ. 4 MG/ML VIAL IVP ONE (19:15)
--- NOTE | 2022-08-31 19:20 | NUR ---
PATIENT BROUGTH IN FOR CHRONIC LOW BACK PAIN WITH CONSTANT 10/10 NON RADIATING LOW BACK PAIN TODAY. NO REPORTS OF FEVER, CHILLS, NAUSEA, VOMITING TRAUMA. NO OTHER COMPLAINTS/INJURIES PER PATIENT OR NOTED. WILL CONTINUE TO MONITOR
--- NOTE | 2022-08-31 19:25 | NUR ---
# 20 gauge angiocath placed to RAC. Use of asceptic technique. Opsite placed over site. Blood return noted. Blood for lab drawn from site. Flushed with 10 cc of normal saline. No evidence of infiltration noted. Patient tolerated well.
[2022-08-31 19:51] LABS: BASOPHILS % (AUTO) 0.8 % (0.0-2.0); EOSINOPHILS # (AUTO) 0.3 K/uL (0.0-0.4); HEMATOCRIT 30.5 % (36-48); HEMOGLOBIN 10.2 g/dL (12.0-16.0); LYMPHOCYTES # (AUTO) 0.8 K/uL (1.0-5.5); LYMPHOCYTES % (AUTO) 16.3 % (20.5-51.5); MEAN CORPUSCULAR HEMOGLOBIN 27 pg (27-31); MEAN CORPUSCULAR HGB CONC 33 % (32-36); MEAN CORPUSCULAR VOLUME 81 fL (79.0-98.0); MONOCYTES # (AUTO) 0.6 K/uL (0.0-1.0); NEUTROPHILS # (AUTO) 3.5 K/uL (1.8-7.7); NEUTROPHILS % (AUTO) 66.9 % (40.0-70.0); PLATELET COUNT (AUTO) 178 K/uL (130-430); RED BLOOD CELL COUNT(AUTO) 3.77 MIL/uL (4.2-6.2); RED CELL DISTRIBUTION WIDTH 16.6 % (9.0-15.0); WHITE BLOOD COUNT (AUTO) 5.2 K/uL (4.8-10.8)
--- NOTE | 2022-08-31 19:52 | NUR ---
PATIENT OFF UNIT TO CT SCAN
[2022-08-31 19:53] LABS: CALCIUM 9.8 mg/dL (8.4-11.0); CREATININE 7.27 mg/dL (0.55-1.30)
[2022-08-31 19:58] LABS: ALBUMIN 3.4 g/dL (3.4-4.8); TOTAL BILIRUBIN 0.6 mg/dL (0.0-1.0)
--- NOTE | 2022-08-31 20:00 | NUR ---
PATIENT RETURNED FROM CT SCAN
--- NOTE | 2022-08-31 20:54 | NUR ---
PATIENT RESTING QUIETLY IN BED. NO ACUTE DISTRESS NOTED AT THIS TIME.
--- NOTE | 2022-08-31 21:28 | NUR ---
ACCOMPANIED DR. RAYO TO DISCHARGE PATIENT. PATIENT IS ASLEEP RESTING COMFORTABLY. NO ACUTE DISTRESS NOTED. DAUGHTER AT BEDSIDE WAS UPDATED ON PATIENT'S STATUS.
[2022-08-31 21:35] VITALS: BP_SYST 126
--- NOTE | 2022-08-31 21:47 | NUR ---
Patient given written and verbal discharge instructions and verbalizes understanding. ER MD discussed with patient the results and treatment provided. Patient in stable condition. ID arm band removed. IV catheter removed NO RX GIVEN. Patient educated on pain management and to follow up with PMD. Pain Scale 2/10 Opportunity for questions provided and answered. PATIENT IS INSTRUCTED TO FOLLOW UP WITH [facility] FOR FOLLOW UP CARE.
== END 2022-08-31 21:35 | disposition home or self-care (01) ==
LOC: SED 17:48
DX: M54.50 Low back pain, unspecified (principal); E11.9 Type 2 diabetes mellitus without complications; I10 Essential (primary) hypertension; Z88.1 Allergy status to other antibiotic agents; Z79.899 Other long term (current) drug therapy
CPT/HCPCS: 99285; 74176; 96374; 96375; 80053; 85025; 36415; 76376; J2405; J2270

== ENCOUNTER 2022-10-03 23:05 | Inpatient (IN) | payer OTHER, MEDICAID ==
[~2022-10-03] VITALS: Ht 162.6 cm; Wt 85.7 kg
[2022-10-03 23:16] VITALS: BP_SYST 152
[2022-10-03 23:50] LABS: BASOPHILS % (AUTO) 0.8 % (0.0-2.0); EOSINOPHILS # (AUTO) 0.4 K/uL (0.0-0.4); EOSINOPHILS % (AUTO) 5.9 % (0.0-4.0); HEMATOCRIT 29.3 % (36-48); HEMOGLOBIN 9.5 g/dL (12.0-16.0); LYMPHOCYTES # (AUTO) 1.5 K/uL (1.0-5.5); LYMPHOCYTES % (AUTO) 22.9 % (20.5-51.5); MEAN CORPUSCULAR HEMOGLOBIN 27 pg (27-31); MEAN CORPUSCULAR HGB CONC 33 % (32-36); MEAN CORPUSCULAR VOLUME 84 fL (79.0-98.0); MONOCYTES # (AUTO) 0.6 K/uL (0.0-1.0); MONOCYTES % (AUTO) 8.7 % (1.7-9.3); NEUTROPHILS % (AUTO) 61.7 % (40.0-70.0); PLATELET COUNT (AUTO) 223 K/uL (130-430); RED BLOOD CELL COUNT(AUTO) 3.48 MIL/uL (4.2-6.2); RED CELL DISTRIBUTION WIDTH 18.6 % (9.0-15.0); WHITE BLOOD COUNT (AUTO) 6.4 K/uL (4.8-10.8)
[2022-10-04 00:16] LABS: ALANINE AMINOTRANSFERASE 20 U/L (12-78); ALBUMIN 3.2 g/dL (3.4-4.8); ANION GAP 15 (5-15); ASPARTATE AMINOTRANSFERASE 22 U/L (10-37); CALCIUM 8.8 mg/dL (8.4-11.0); CHLORIDE 98 mmol/L (98-107); GFR AFRICAN AMERICAN 6 mL/min (>90); GLUCOSE 106 mg/dL (70-99); LIPASE 813 U/L (73-393); TOTAL BILIRUBIN 0.5 mg/dL (0.0-1.0); UREA NITROGEN, BLOOD 67 mg/dL (8-21)
[2022-10-04 00:28] LABS: CREATININE 9.33 mg/dL (0.55-1.30)
[2022-10-04] MEDS ORDERED: INSULIN REGULAR, HUMAN 10 UNITS/0.1 ML, 3 ML VIAL IVP ONE (00:45)
[2022-10-04] MEDS ORDERED: DEXTROSE 50% JECT 50 ML DISP.SYRIN IVP ONE (00:45)
[2022-10-04] MEDS ORDERED: ACETAMINOPHEN 500 MG TABLET PO ONE (00:45)
[2022-10-04] MEDS ORDERED: NS 500 ML IV ONE (00:45)
[2022-10-04 01:08] LABS: PHOSPHORUS 7.4 mg/dL (2.7-4.5)
[2022-10-04] MEDS ORDERED: SEVE800T8 PO (04:01)
[2022-10-04] MEDS ORDERED: TICA90TA PO (04:01)
[2022-10-04] MEDS ORDERED: DOCU-144 PO (04:01)
[2022-10-04] MEDS ORDERED: PREG75CA PO (04:05)
[2022-10-04 04:46] VITALS: BP_SYST 130
[2022-10-04] MEDS ORDERED: DEXTROSE 50% JECT 50 ML DISP.SYRIN ONE (05:21)
[2022-10-04] MEDS ORDERED: DEXTROSE 50% JECT 50 ML DISP.SYRIN IVP PRN (05:45)
[2022-10-04] MEDS ORDERED: INSULIN REGULAR, HUMAN 100 UNITS/ML, 3 ML VIAL (humuLIN R) SUBCUT PRN (05:45)
[2022-10-04] MEDS ORDERED: D5W 1,000 ML IV PRN (05:45)
[2022-10-04] MEDS ORDERED: GLUCOSE (DEXTROSE) ORAL GEL -Adults PO PRN (05:45)
[2022-10-04] MEDS ORDERED: ACET-2634 PO (07:28)
[2022-10-04] MEDS ORDERED: PREDEYE1% LEFT EYE (07:38)
[2022-10-04] MEDS ORDERED: ACET325T PO (07:38)
[2022-10-04 08:27] LABS: CHOLESTEROL 93 mg/dL (<200); HDL CHOLESTEROL 75 mg/dL (>55); TRIGLYCERIDES 30 mg/dL (30-150)
[2022-10-04] MEDS ORDERED: NON-FORMULARY MEDICATION (Rosuvastatin Calcium 1 TAB) PO SCH (09:00)
[2022-10-04] MEDS ORDERED: amLODIPine BESYLATE 10 MG TABLET PO SCH (09:00)
[2022-10-04] MEDS: TICAGRELOR 60 MG TABLET PO SCH ×2 (09:00→21:58)
[2022-10-04] MEDS ORDERED: SEVELAMER CARBONATE 800 MG TABLET PO SCH ×3 (09:00→18:00)
[2022-10-04] MEDS: ASPIRIN 81 MG TABLET(ECOTRIN) PO SCH (09:59)
[2022-10-04] MEDS: DOCUSATE SODIUM 100 MG CAPSULE PO SCH ×2 (09:59→21:54)
[2022-10-04] MEDS: PANTOPRAZOLE SODIUM 40 MG TAB PO SCH (09:59)
[2022-10-04] MEDS: ATORVASTATIN 20 MG TABLET PO SCH (09:59)
[2022-10-04] MEDS ORDERED: LEVOTHYROXINE SODIUM 0.05 MG TABLET PO ONE (10:00)
[2022-10-04] MEDS: FOLIC ACID 1 MG TABLET PO SCH (10:00)
[2022-10-04] MEDS: hydrALAZINE HCL 25 MG TABLET PO SCH (10:01)
[2022-10-04] MEDS: PREGABALIN 75 MG CAPSULE (LYRICA) PO SCH ×2 (10:01→21:54)
[2022-10-04 11:46] VITALS: BP_SYST 143
[2022-10-04] MEDS ORDERED: NALOXONE HCL 0.4 MG/ML AMP (NARCAN) IVP PRN (14:15)
[2022-10-04] MEDS ORDERED: MECLIZINE HCL 25 MG TABLET (ANITVERT) PO PRN (14:15)
[2022-10-04] MEDS ORDERED: POVIDONE IODINE TP SCH (15:00)
[2022-10-04] MEDS ORDERED: ASCORBIC ACID 500 MG TABLET PO ONE (16:00)
[2022-10-04] MEDS: SEVELAMER CARBONATE 800 MG TABLET PO SCH (16:06)
[2022-10-04] MEDS ORDERED: prednisoLONE 1% OPHTHALMIC SUSPN 5 ML OP SCH (17:00)
[2022-10-04 18:12] VITALS: BP_SYST 121
[2022-10-04 20:24] VITALS: BP_SYST 127
[2022-10-04 20:26] VITALS: BP_SYST 127
[2022-10-04] MEDS: HYDROcodone/ACETAMIN 10-325 MG TAB PO PRN (21:53)
[2022-10-04] MEDS: NEPHROVITE, (FOLIC ACID/VITAMIN B COMP W-C 1 TAB) PO SCH (21:54)
[2022-10-04] MEDS: prednisoLONE 1% OPHTHALMIC SUSPN 5 ML OP SCH (21:58)
[2022-10-05] MEDS: HYDROcodone/ACETAMIN 10-325 MG TAB PO PRN (04:50)
[2022-10-05 05:43] LABS: BASOPHILS % (AUTO) 0.8 % (0.0-2.0); EOSINOPHILS # (AUTO) 0.4 K/uL (0.0-0.4); EOSINOPHILS % (AUTO) 7.4 % (0.0-4.0); HEMATOCRIT 29.1 % (36-48); HEMOGLOBIN 9.8 g/dL (12.0-16.0); LYMPHOCYTES # (AUTO) 1.4 K/uL (1.0-5.5); LYMPHOCYTES % (AUTO) 24.5 % (20.5-51.5); MEAN CORPUSCULAR HEMOGLOBIN 28 pg (27-31); MEAN CORPUSCULAR HGB CONC 34 % (32-36); MEAN CORPUSCULAR VOLUME 84 fL (79.0-98.0); MONOCYTES # (AUTO) 0.6 K/uL (0.0-1.0); MONOCYTES % (AUTO) 10.7 % (1.7-9.3); NEUTROPHILS # (AUTO) 3.3 K/uL (1.8-7.7); NEUTROPHILS % (AUTO) 56.6 % (40.0-70.0); PLATELET COUNT (AUTO) 210 K/uL (130-430); RED BLOOD CELL COUNT(AUTO) 3.48 MIL/uL (4.2-6.2); RED CELL DISTRIBUTION WIDTH 18.6 % (9.0-15.0); WHITE BLOOD COUNT (AUTO) 5.9 K/uL (4.8-10.8)
[2022-10-05 06:51] LABS: CREATININE 8.41 mg/dL (0.55-1.30)
[2022-10-05 08:32] VITALS: BP_SYST 144
[2022-10-05] MEDS: prednisoLONE 1% OPHTHALMIC SUSPN 5 ML OP SCH ×3 (08:57→21:00)
[2022-10-05] MEDS: PANTOPRAZOLE SODIUM 40 MG TAB PO SCH (08:59)
[2022-10-05] MEDS: TICAGRELOR 60 MG TABLET PO SCH ×2 (09:00→21:01)
[2022-10-05] MEDS: SEVELAMER CARBONATE 800 MG TABLET PO SCH ×3 (09:00→17:50)
[2022-10-05] MEDS: PREGABALIN 75 MG CAPSULE (LYRICA) PO SCH ×2 (09:00→21:00)
[2022-10-05] MEDS: ASCORBIC ACID 500 MG TABLET PO SCH (09:02)
[2022-10-05] MEDS: DOCUSATE SODIUM 100 MG CAPSULE PO SCH ×2 (09:03→21:00)
[2022-10-05] MEDS: ASPIRIN 81 MG TABLET(ECOTRIN) PO SCH (09:04)
[2022-10-05] MEDS: ATORVASTATIN 20 MG TABLET PO SCH (09:04)
[2022-10-05] MEDS: FOLIC ACID 1 MG TABLET PO SCH (09:04)
[2022-10-05] MEDS: hydrALAZINE HCL 25 MG TABLET PO SCH (09:05)
[2022-10-05] MEDS: LEVOTHYROXINE SODIUM 0.05 MG TABLET PO SCH (09:06)
[2022-10-05] MEDS ORDERED: SODIUM POLYSTYRENE SULFONATE 15 GM/60 ML UDBTL PO ONE (11:00)
[2022-10-05 12:10] VITALS: BP_SYST 136
[2022-10-05] MEDS: ACETAMINOPHEN 325 MG TABLET PO PRN ×2 (12:30→18:34)
[2022-10-05 16:30] VITALS: BP_SYST 149
[2022-10-05 19:55] VITALS: BP_SYST 143
[2022-10-05] MEDS: NEPHROVITE, (FOLIC ACID/VITAMIN B COMP W-C 1 TAB) PO SCH (21:00)
[2022-10-06 00:55] VITALS: BP_SYST 159
[2022-10-06] MEDS: ACETAMINOPHEN 325 MG TABLET PO PRN (06:20)
[2022-10-06] MEDS: HYDROcodone/ACETAMIN 10-325 MG TAB PO PRN ×2 (06:27)
[2022-10-06 08:01] VITALS: BP_SYST 155
[2022-10-06] MEDS: hydrALAZINE HCL 25 MG TABLET PO SCH (09:00)
[2022-10-06] MEDS: ATORVASTATIN 20 MG TABLET PO SCH (09:00)
[2022-10-06] MEDS: TICAGRELOR 60 MG TABLET PO SCH (09:38)
[2022-10-06] MEDS: PANTOPRAZOLE SODIUM 40 MG TAB PO SCH (09:39)
[2022-10-06] MEDS: ASPIRIN 81 MG TABLET(ECOTRIN) PO SCH (09:40)
[2022-10-06] MEDS: FOLIC ACID 1 MG TABLET PO SCH (09:40)
[2022-10-06] MEDS: PREGABALIN 75 MG CAPSULE (LYRICA) PO SCH (09:40)
[2022-10-06] MEDS: ASCORBIC ACID 500 MG TABLET PO SCH (09:40)
[2022-10-06] MEDS: LEVOTHYROXINE SODIUM 0.05 MG TABLET PO SCH (09:40)
[2022-10-06] MEDS: DOCUSATE SODIUM 100 MG CAPSULE PO SCH (09:40)
[2022-10-06] MEDS: prednisoLONE 1% OPHTHALMIC SUSPN 5 ML OP SCH (09:42)
[2022-10-06] MEDS ORDERED: LEVOTHYROXINE SODIUM 0.05 MG TABLET PO SCH (11:44)
[2022-10-06 13:00] VITALS: BP_SYST 118; BP_SYST 158
[2022-10-06 14:40] VITALS: BP_SYST 148
[2022-10-06 17:39] VITALS: BP_SYST 134
== END 2022-10-06 15:00 | disposition home or self-care (01) | DRG 640 ==
LOC: SED 23:05 → STU 10-04 03:46
PROVIDERS: ADMIT Family Medicine; ATTEND Family Medicine
PROC: 5A1D70Z Performance of Urinary Filtration, Intermittent, Less than 6 Hours Per Day (ICD-10-PCS; principal; 2022-10-04)
PROC: 5A1D70Z Performance of Urinary Filtration, Intermittent, Less than 6 Hours Per Day (ICD-10-PCS; 2022-10-05)
DX: E87.5 Hyperkalemia (principal); N18.6 End stage renal disease; I12.0 Hypertensive chronic kidney disease with stage 5 chronic kidney disease or end stage renal disease; R00.1 Bradycardia, unspecified; E03.9 Hypothyroidism, unspecified; E11.22 Type 2 diabetes mellitus with diabetic chronic kidney disease; E11.610 Type 2 diabetes mellitus with diabetic neuropathic arthropathy; D63.1 Anemia in chronic kidney disease; E11.51 Type 2 diabetes mellitus with diabetic peripheral angiopathy without gangrene; E78.5 Hyperlipidemia, unspecified; I25.10 Atherosclerotic heart disease of native coronary artery without angina pectoris; Z89.429 Acquired absence of other toe(s), unspecified side; Z95.5 Presence of coronary angioplasty implant and graft; Z98.84 Bariatric surgery status; Z98.891 History of uterine scar from previous surgery; Z99.2 Dependence on renal dialysis; Z88.1 Allergy status to other antibiotic agents
CPT/HCPCS: 36415; 70450-TC; 71045; 76376; 80048; 80053; 80061; 82962; 83690; 83735; 83880; 84100; 84484; 85025; 90935; 90937; 93005; 93306; 96361; 96372; 96374; 99291; G0378; J1815

== ENCOUNTER 2023-01-04 21:47 | Inpatient (IN) | payer OTHER, MEDICAID ==
[~2023-01-04] VITALS: Ht 162.6 cm; Wt 80.3 kg
[~2023-01-04 21:47] MED LIST changes: +ACET-2634 PO; +ACET325T PO; +DOCU-144 PO; +PREDEYE1% LEFT EYE; +PREG75CA PO; +TICA90TA PO
[2023-01-04 21:50] VITALS: BP_SYST 151; PULSE 66; RESP 20; TEMP 97.9; O2SAT 99
[2023-01-04 23:12] LABS: BASOPHILS # (AUTO) 0.1 K/uL (0.0-0.2); BASOPHILS % (AUTO) 1.2 % (0.0-2.0); EOSINOPHILS # (AUTO) 0.5 K/uL (0.0-0.4); EOSINOPHILS % (AUTO) 9.2 % (0.0-4.0); HEMATOCRIT 32.2 % (36-48); HEMOGLOBIN 10.3 g/dL (12.0-16.0); LYMPHOCYTES # (AUTO) 1.5 K/uL (1.0-5.5); LYMPHOCYTES % (AUTO) 28.9 % (20.5-51.5); MEAN CORPUSCULAR HEMOGLOBIN 28 pg (27-31); MEAN CORPUSCULAR HGB CONC 32 % (32-36); MEAN CORPUSCULAR VOLUME 87 fL (79.0-98.0); MONOCYTES # (AUTO) 0.6 K/uL (0.0-1.0); MONOCYTES % (AUTO) 11.4 % (1.7-9.3); NEUTROPHILS # (AUTO) 2.6 K/uL (1.8-7.7); NEUTROPHILS % (AUTO) 49.3 % (40.0-70.0); PLATELET COUNT (AUTO) 283 K/uL (130-430); RED BLOOD CELL COUNT(AUTO) 3.71 MIL/uL (4.2-6.2); RED CELL DISTRIBUTION WIDTH 14.9 % (9.0-15.0); WHITE BLOOD COUNT (AUTO) 5.2 K/uL (4.8-10.8)
[2023-01-04] MEDS ORDERED: MORPHINE 4 MG INJ. 4 MG/ML VIAL IVP ONE (23:15)
[2023-01-04 23:45] LABS: CALCIUM 8.9 mg/dL (8.4-11.0); CREATININE 6.35 mg/dL (0.55-1.30); POTASSIUM 3.5 mmol/L (3.5-5.1)
[2023-01-04 23:50] LABS: TOTAL BILIRUBIN 0.5 mg/dL (0.0-1.0); TOTAL PROTEIN, SERUM 7.1 g/dL (6.4-8.3)
[2023-01-05] VITALS (11 sets, daily range): BP systolic 155–197; PULSE 60–78; RESP 15–20; TEMP 96.8–98; O2SAT 95–100
[2023-01-05] MEDS ORDERED: CYCL10TA24 PO (00:08)
[2023-01-05] MEDS ORDERED: GLIM2TAB58 PO (00:08)
[2023-01-05] MEDS ORDERED: FOLI0.8T2 PO (00:11)
[2023-01-05] MEDS ORDERED: ONDANSETRON HCL 4 MG/2 ML VIAL IVP PRN (00:15)
[2023-01-05] MEDS ORDERED: MORPHINE 2 MG/ML INJ. SYRINGE IVP PRN (00:15)
[2023-01-05] MEDS: cloNIDine HCL 0.1 MG TABLET PO PRN (04:02)
[2023-01-05] MEDS ORDERED: MECLIZINE HCL 25 MG TABLET (ANITVERT) PO PRN (10:30)
[2023-01-05] MEDS ORDERED: CYCLOBENZAPRINE HCL 10 MG TABLET (FLEXERIL) PO PRN (10:30)
[2023-01-05] MEDS ORDERED: NALOXONE HCL 0.4 MG/ML AMP (NARCAN) IVP PRN (10:30)
[2023-01-05] MEDS ORDERED: TICA60TA PO (11:01)
[2023-01-05] MEDS: SEVELAMER CARBONATE 800 MG TABLET PO SCH ×2 (11:49→17:03)
[2023-01-05] MEDS: ACETAMINOPHEN 500 MG TABLET PO PRN ×2 (11:54→15:51)
[2023-01-05] MEDS: hydrALAZINE HCL 25 MG TABLET PO SCH ×2 (13:03→21:06)
[2023-01-05] MEDS ORDERED: VANCOMYCIN HCL 1,000 MG in NS 250 ML IV ONE (14:00)
[2023-01-05] MEDS: SIMETHICONE 80 MG TAB.CHEW PO SCH ×2 (14:43→21:06)
[2023-01-05] MEDS: HYDROcodone/ACETAMIN 10-325 MG TAB PO PRN (17:07)
[2023-01-05] MEDS ORDERED: SEVELAMER CARBONATE 800 MG TABLET PO PRN (18:00)
[2023-01-05] MEDS ORDERED: TICAGRELOR 60 MG TABLET PO SCH (21:00)
[2023-01-05] MEDS: TICAGRELOR 60 MG TABLET PO SCH (21:05)
[2023-01-05] MEDS: DOCUSATE SODIUM 100 MG CAPSULE PO SCH (21:06)
[2023-01-06] MEDS: ACETAMINOPHEN 500 MG TABLET PO PRN (01:01)
[2023-01-06] MEDS: cloNIDine HCL 0.1 MG TABLET PO PRN (01:02)
[2023-01-06 01:05] VITALS: BP_SYST 162; PULSE 73; RESP 17; TEMP 98; O2SAT 95
[2023-01-06 05:24] LABS: BASOPHILS # (AUTO) 0.1 K/uL (0.0-0.2); BASOPHILS % (AUTO) 1.4 % (0.0-2.0); EOSINOPHILS # (AUTO) 0.5 K/uL (0.0-0.4); EOSINOPHILS % (AUTO) 9.1 % (0.0-4.0); HEMATOCRIT 32.4 % (36-48); HEMOGLOBIN 10.3 g/dL (12.0-16.0); LYMPHOCYTES # (AUTO) 1.1 K/uL (1.0-5.5); LYMPHOCYTES % (AUTO) 21.5 % (20.5-51.5); MEAN CORPUSCULAR HEMOGLOBIN 27 pg (27-31); MEAN CORPUSCULAR HGB CONC 32 % (32-36); MEAN CORPUSCULAR VOLUME 86 fL (79.0-98.0); MONOCYTES # (AUTO) 0.6 K/uL (0.0-1.0); MONOCYTES % (AUTO) 11.1 % (1.7-9.3); NEUTROPHILS % (AUTO) 56.9 % (40.0-70.0); PLATELET COUNT (AUTO) 292 K/uL (130-430); RED BLOOD CELL COUNT(AUTO) 3.78 MIL/uL (4.2-6.2); RED CELL DISTRIBUTION WIDTH 15.1 % (9.0-15.0); WHITE BLOOD COUNT (AUTO) 5.2 K/uL (4.8-10.8)
[2023-01-06 05:45] LABS: CREATININE 5.69 mg/dL (0.55-1.30); VANCOMYCIN,RANDOM 23.4 ug/mL
[2023-01-06] MEDS: hydrALAZINE HCL 25 MG TABLET PO SCH ×2 (06:31→16:25)
[2023-01-06] MEDS: GLIMEPIRIDE 2 MG TABLET PO SCH ×2 (06:31→06:34)
[2023-01-06 08:00] VITALS: BP_SYST 129; PULSE 74; RESP 17; TEMP 97.6; O2SAT 99
[2023-01-06 08:04] VITALS: BP_SYST 159; PULSE 70; RESP 18; TEMP 98; O2SAT 96
[2023-01-06] MEDS ORDERED: amLODIPine BESYLATE 10 MG TABLET PO SCH (09:00)
[2023-01-06] MEDS ORDERED: ASPIRIN 81 MG TABLET(ECOTRIN) PO SCH (09:00)
[2023-01-06] MEDS ORDERED: PANTOPRAZOLE SODIUM 40 MG TAB PO SCH (09:00)
[2023-01-06] MEDS ORDERED: FOLIC ACID 1 MG TABLET PO SCH (09:00)
[2023-01-06] MEDS ORDERED: hydrALAZINE HCL 25 MG TABLET PO SCH (09:00)
[2023-01-06] MEDS ORDERED: NEPHROVITE, (FOLIC ACID/VITAMIN B COMP W-C 1 TAB) PO SCH (09:00)
[2023-01-06] MEDS: TICAGRELOR 60 MG TABLET PO SCH (10:09)
[2023-01-06] MEDS: SIMETHICONE 80 MG TAB.CHEW PO SCH ×2 (10:10→16:25)
[2023-01-06] MEDS: HYDROcodone/ACETAMIN 10-325 MG TAB PO PRN (10:10)
[2023-01-06] MEDS: DOCUSATE SODIUM 100 MG CAPSULE PO SCH (10:11)
[2023-01-06] MEDS: SEVELAMER CARBONATE 800 MG TABLET PO SCH ×2 (10:11→12:18)
[2023-01-06 11:24] VITALS: O2SAT 99
[2023-01-06 12:30] VITALS: BP_SYST 145; PULSE 72; RESP 18; TEMP 97.4; O2SAT 98
[2023-01-06 16:33] VITALS: BP_SYST 129; PULSE 74; RESP 17; TEMP 97.6; O2SAT 99
== END 2023-01-06 18:25 | disposition home or self-care (01) | DRG 539 ==
LOC: SED 21:47 → SMU 01-05 00:12
PROVIDERS: ADMIT Family Medicine; ATTEND Family Medicine
PROC: 5A1D70Z Performance of Urinary Filtration, Intermittent, Less than 6 Hours Per Day (ICD-10-PCS; principal; 2023-01-05)
DX: M46.24 Osteomyelitis of vertebra, thoracic region (principal); N18.6 End stage renal disease; I12.0 Hypertensive chronic kidney disease with stage 5 chronic kidney disease or end stage renal disease; M46.44 Discitis, unspecified, thoracic region; E11.69 Type 2 diabetes mellitus with other specified complication; D64.9 Anemia, unspecified; E11.22 Type 2 diabetes mellitus with diabetic chronic kidney disease; E11.610 Type 2 diabetes mellitus with diabetic neuropathic arthropathy; Z88.8 Allergy status to other drugs, medicaments and biological substances
CPT/HCPCS: 36415; 71045; 80048; 80053; 80202; 82962; 83605; 85025; 87040; 87081; 90935; 93005; 96374; 97163-GP; 97530-GP; 99285; J2270; J3370; J7030; J7050; J8597

== ENCOUNTER 2024-01-11 08:47 | Emergency (ER) | payer OTHER, MEDICAID ==
[~2024-01-11] VITALS: Ht 162.6 cm; Wt 79.8 kg
[~2024-01-11 08:47] MED LIST changes: -ACET-2634 PO; -ACET325T PO; -ASCO500T20 PO; +CYCL10TA24 PO; +FOLI0.8T53 PO; +GLIM2TAB58 PO; -HYDR-4038 PO; +HYDR25TA86 PO; -LINA145C PO; -MECL-160 PO; +MECL-292 PO; -NEPH PO; -PREDEYE1% LEFT EYE; -PREG75CA PO; -ROSU10TA29 PO; +TICA60TA PO; -TICA90TA PO; -ZINC50TA69 PO; -[UNRECOGNIZED DRUG - CODE] TP
[2024-01-11 09:06] VITALS: BP_SYST 140; PULSE 80; RESP 17; TEMP 98.7; O2SAT 99
[2024-01-11] MEDS ORDERED: HYDR-3917 PO (10:49)
[2024-01-11 10:55] VITALS: BP_SYST 140; PULSE 80; RESP 17; TEMP 98.7; O2SAT 99
== END 2024-01-11 11:06 | disposition home or self-care (01) ==
LOC: SED 08:47
DX: S09.8XXA Other specified injuries of head, initial encounter (principal); M54.2 Cervicalgia; I12.9 Hypertensive chronic kidney disease with stage 1 through stage 4 chronic kidney disease, or unspecified chronic kidney disease; E11.22 Type 2 diabetes mellitus with diabetic chronic kidney disease; N18.9 Chronic kidney disease, unspecified; Z88.1 Allergy status to other antibiotic agents; Z88.6 Allergy status to analgesic agent; Z79.899 Other long term (current) drug therapy; Z79.2 Long term (current) use of antibiotics; Z79.82 Long term (current) use of aspirin; W18.2XXA Fall in (into) shower or empty bathtub, initial encounter; Y93.89 Activity, other specified; Y92.89 Other specified places as the place of occurrence of the external cause; Y99.8 Other external cause status
CPT/HCPCS: 70450-TC; 71045; 72125-TC; 99284